=== PATIENT | male | born 1980 | race Caucasian/White ===

== ENCOUNTER → 2016-12-01 | Outpatient (CLI) | payer OTHER ==
--- NOTE | 2016-12-01 15:31 | US ---
EXAMINATION TYPE: US abdomen complete DATE OF EXAM: 12/01/2016 8:44 AM COMPARISON: NONE CLINICAL HISTORY: Generalized ABD pain EXAM MEASUREMENTS: Liver Length: 17.7 cm Gallbladder Wall: 0.3 cm CBD: 0.5 cm Spleen: 11.4 cm Right Kidney: 12.1 x 6.1 x 5.5 cm Left Kidney: 13.4 x 6.5 x 6.0 cm ANATOMY: TECHNOLOGIST IMPRESSION: Large pt body habitus, difficult to penetrate Pancreas: Head, body wnl/ tail obscured by overlying bowel gas Liver: Heterogeneous, difficult to penetrate, upper limits of normal for size Gallbladder: wnl Evidence for sonographic Gomez's sign: No CBD: wnl Spleen: wnl Right Kidney: wnl Left Kidney: wnl Upper IVC: wnl Abd Aorta: wnl The liver is heterogeneous. IMPRESSION: 1. Mild fatty infiltration liver. 2. There is some limitation due to patient body habitus.
== END | disposition home or self-care (01) ==
LOC: RADUSWWP 08:24
PROVIDERS: ATTEND Family Medicine
DX: K76.0 Fatty (change of) liver, not elsewhere classified (principal); R93.9 Diagnostic imaging inconclusive due to excess body fat of patient
CPT/HCPCS: 76700

== ENCOUNTER → 2016-12-04 | Outpatient (CLI) | payer OTHER ==
--- NOTE | 2016-12-04 16:58 | NM ---
EXAMINATION TYPE: NM hepatobiliary w EF DATE OF EXAM: 12/04/2016 4:46 PM COMPARISON: NONE HISTORY: Pain TECHNIQUE: After the intravenous administration of 5.5 mCi Tc 99m Mebrofenin hepatobiliary scintigrap hy is performed. Immediate images post injection. FINDINGS: There is satisfactory initial accumulation of tracer by the liver. The gallbladder is visualized wit hin 6 minutes. The small bowel activity is noted within 28 minutes. At one hour 8 ounces of oral en sure plus is given to mimic CCK and gallbladder ejection fraction is calculated at 69 %, in the diane l range. Therefore there is no scintigraphic evidence of cystic or common bile duct obstruction to s uggest acute cholecystitis or gallbladder dyskinesia. IMPRESSION: Exam is within normal limits.
== END | disposition home or self-care (01) ==
LOC: RADNMMAIN 14:43
PROVIDERS: ATTEND Family Medicine
DX: R10.11 Right upper quadrant pain (principal)
CPT/HCPCS: 78226; A9537

== ENCOUNTER → 2017-06-24 | Outpatient (CLI) | payer OTHER ==
--- NOTE | 2017-06-25 07:45 | CT ---
EXAMINATION TYPE: CT abdomen pelvis wo/w con DATE OF EXAM: 06/24/2017 COMPARISON: Complete abdominal ultrasound December 01, 2016. HISTORY: Right side/lower abdominal pain x1 year. CT DLP: 3849.4 mGycm, Automated Exposure Control for Dose Reduction was Utilized. CONTRAST: CT scan of the abdomen and pelvis is performed with oral and without and with IV Contrast, patient in jected with 100 mL of Omnipaque 300. FINDINGS: LUNG BASES: No significant abnormality is appreciated. LIVER/GB: Liver is diffusely low dense relative to spleen consistent with fatty infiltration on nonco ntrast CT. PANCREAS: No significant abnormality is seen. SPLEEN: No significant abnormality is seen. ADRENALS: No significant abnormality is seen. KIDNEYS: No renal calculi are evident on noncontrast CT images. There is symmetric cortical medullar y uptake and excretion from both kidneys without evidence of hydronephrosis bilaterally. There are fe w scattered pelvic phleboliths. BOWEL: The oral contrast does not reach colonic level. Appendix is felt within normal limits from the base of cecum. There is no suspicious small or large bowel dilatation identified. PROSTATE/SEMINAL VESICLES: No gross abnormality seen. LYMPH NODES: No greater than 1cm abdominal or pelvic lymph nodes are appreciated. OSSEOUS STRUCTURES: No significant abnormality is seen. OTHER: No significant additional abnormality is seen. IMPRESSION: No bowel obstruction is seen. No significant acute finding is seen to account for patien t's clinical symptoms.
== END | disposition home or self-care (01) ==
LOC: RADCTMAIN 17:01
PROVIDERS: ATTEND Internal Medicine Gastroenterology
DX: R10.9 Unspecified abdominal pain (principal)
CPT/HCPCS: 74178; Q9967

== ENCOUNTER → 2017-07-30 | Outpatient (CLI) | payer OTHER ==
--- NOTE | 2017-07-30 11:28 | FL ---
EXAMINATION TYPE: FL small bowel follow through DATE OF EXAM: 07/30/2017 11:02 AM COMPARISON: NONE HISTORY: Abdominal Pain The patient ingested thin liquid barium without difficulty. Small bowel follow-through was performed with transit time of 110 minutes. Small bowel loops appear to be of normal caliber and demonstrate normal mucosal fold pattern. No evidence for intrinsic or extrinsic mass. No evidence for mucosal a bnormality. I do not see evidence for Crohn's disease. Normal-appearing terminal ileum. IMPRESSION: Unremarkable study
== END | disposition home or self-care (01) ==
LOC: RADFLMAIN 08:04
DX: R10.9 Unspecified abdominal pain (principal)
CPT/HCPCS: 74250

== ENCOUNTER → 2017-12-21 | Outpatient (CLI) | payer OTHER ==
[2017-12-21 15:44] VITALS: BP 146/86; PULSE 82; RESP 15; TEMP 98.5; BMI 39.6
--- NOTE | 2017-12-21 15:59 | P.HPBAR ---
Bariatric H&P - History & Physicial H&P Date: 12/21/17 History & Physicial: Visit/CC: sleeve consult Patient initial contact: Initial weight: 134.309 kg Initial weight in pounds: 296.10 Height: 6 ft 0.5 in Initial BMI: 39.6 Last weight: Current weight: 134.309 kg Current weight in pounds: 296.10 Current BMI: 39.6 [place] body weight (based on NIH guidelines): 82.1 kg Excess body weight loss: 0.0% The patient is a 37 year-old M who presents for Bariatric Assessment. Patient presents today for sleeve gastrectomy consultation. He's had lifetime problems obesity. He attended a recent informational seminar. Past Medical History Past Medical History: GERD/Reflux Additional Past Medical History / Comment(s): MONO-(WITH LOOSE STOOLS, BLOOD IN STOOL, ABDOMINAL AND BACK PAIN.), RECENT GERD WITH MONO. History of Any Multi-Drug Resistant Organisms: None Reported Additional Past Surgical History / Comment(s): RIGHT FOOT SURGERY FOR GLASS INJURY (17YRS OLD), COLONOSCOPY (AUG 2016) Past Anesthesia/Blood Transfusion Reactions: No Reported Reaction, Motion Sickness Past Psychological History: No Psychological Hx Reported Smoking Status: Never smoker Past Alcohol Use History: None Reported Past Drug Use History: None Reported - Past Family History Mother Family Medical History: Diabetes Mellitus Surgical - Exam Vital Signs Temp Pulse Resp BP 98.5 F 82 15 146/86 12/21/17 15:22 12/21/17 15:22 12/21/17 15:22 12/21/17 15:22 - General well developed, no distress - Eyes PERRL - ENT normal pinna - Neck no masses - Respiratory normal expansion - Cardiovascular Rhythm: regular - Abdomen Abdomen: soft, non tender Bariatric Assessment & Plan Plan: Morbid obesity with severe comorbidities. Patient will be scheduled for EGD. He'll follow-up one month. We will lengthy discussion regarding gastric sleeve surgery. I went over the risks and benefits of procedure. Bariatric Checklist Checklist: Plan: Checklist: EGD: 1. Hiatal hernia: 2. H. Pylori: HgbA1c: Vitamin D: Smoking: Never smoker Primary care physician referral: Garry Nance Psychiatry clearance: Cardiology clearance: Sleep study: Diet journal: VTE risk score: VTE risk level: Rehab needs at discharge:
== END | disposition home or self-care (01) ==
LOC: BARWHC3 14:58
PROVIDERS: ATTEND Surgery
DX: Z48.815 Encounter for surgical aftercare following surgery on the digestive system (principal); E66.01 Morbid (severe) obesity due to excess calories; K21.9 Gastro-esophageal reflux disease without esophagitis; E44.0 Moderate protein-calorie malnutrition; E55.9 Vitamin D deficiency, unspecified
CPT/HCPCS: 99211

== ENCOUNTER 2018-01-21 08:27 | Day surgery (SDC) | payer OTHER ==
[2018-01-19 12:26] VITALS: BMI 35.6
[~2018-01-21 08:27] MED LIST: LACTATED RINGERS 1,000 ML IV SCH; LIDOCAINE 1% 20 ML VIAL (10MG/ML) FOR IV START INTRADERMA PRN
[2018-01-21 08:51] VITALS: TEMP 98
[2018-01-21] MEDS ORDERED: LIDOCAINE 1% INJ 10MG/ML (20 ML MDV) ONE (09:21)
[2018-01-21] MEDS ORDERED: PROPOFOL 10 MG/ML 20 ML VIAL IV ONE (09:21)
--- NOTE | 2018-01-21 09:22 | P.GSHP ---
History of Present Illness H&P Date: 01/21/18 Chief Complaint: GERD This is a 38-year-old male referred from Dr. Wong. Patient's had complaints of GERD. He has a known history of a hiatal hernia. Past Medical History Past Medical History: GERD/Reflux Additional Past Medical History / Comment(s): HX OF MONO (2016), FREQUENT DIARRHEA, BACK, STOMACH AND FOOT PAIN., PLANTAR FASCIITIS. History of Any Multi-Drug Resistant Organisms: None Reported Additional Past Surgical History / Comment(s): RIGHT FOOT SURGERY FOR GLASS INJURY (17YRS OLD), COLONOSCOPY , EGD. Past Anesthesia/Blood Transfusion Reactions: No Reported Reaction, Motion Sickness Past Psychological History: No Psychological Hx Reported Smoking Status: Never smoker Past Alcohol Use History: None Reported Past Drug Use History: None Reported - Past Family History Mother Family Medical History: Diabetes Mellitus Medications and Allergies Home Medications Medication Instructions Recorded Confirmed Type No Known Home Medications [No 01/19/18 01/19/18 History Known Home Medications] Allergies Allergy/AdvReac Type Severity Reaction Status Date / Time No Known Allergies Allergy Verified 01/19/18 12:09 Surgical - Exam Vital Signs Temp Pulse Resp BP Pulse Ox 98 F 68 16 129/85 96 01/21/18 08:50 01/21/18 08:50 01/21/18 08:50 01/21/18 08:50 01/21/18 08:50 - General well developed, no distress - Eyes PERRL - ENT normal pinna - Neck no masses - Respiratory normal expansion - Cardiovascular Rhythm: regular - Abdomen Abdomen: soft, non tender Assessment and Plan Assessment: GERD. We'll perform EGD.
--- NOTE | 2018-01-21 09:33 | P.OP ---
Date of Procedure: 01/21/18 Preoperative Diagnosis: GERD Postoperative Diagnosis: Antral gastritis Small sliding hiatal hernia Mild esophagitis Procedure(s) Performed: EGD Anesthesia: MAC Surgeon: Emerson Rodríguez Pathology: other (Antrum, esophagus) Condition: stable Disposition: PACU Description of Procedure: Patient's placed on the endoscopy table in the lateral position. He received IV sedation. The gastroscope placed oropharynx and passed into the esophagus and into the stomach. Scope was then placed through the pylorus. The first and second portion of the duodenum appeared normal. Scope was then brought back the antrum and this was mildly inflamed. A biopsies performed. The scope was then retroflexed and remainder of the stomach appeared normal. There was a small sliding hiatal hernia. The GE junction was at 38 cm. The distal esophagus was mildly inflamed a biopsies performed. The proximal esophagus appeared normal. Scope was withdrawn from patient.
[2018-01-21 09:45] VITALS: RESP 18
[2018-01-21 10:17] VITALS: BP 126/79; PULSE 53
== END 2018-01-21 10:27 | disposition home or self-care (01) ==
LOC: ORWHC2ENDO 08:27
PROVIDERS: ATTEND Surgery
DX: K29.50 Unspecified chronic gastritis without bleeding (principal); K44.9 Diaphragmatic hernia without obstruction or gangrene; K21.0 Gastro-esophageal reflux disease with esophagitis; Z83.3 Family history of diabetes mellitus
CPT/HCPCS: 88305; 43239; J2001; J2704

== ENCOUNTER → 2018-03-04 | Outpatient (CLI) | payer OTHER ==
[2018-03-04 15:23] LABS: HCT 47.2 % (39.0-53.0); HGB 15.9 gm/dL (13.0-17.5); MCH 28.3 pg (25.0-35.0); MCHC 33.6 g/dL (31.0-37.0); MCV 84.2 fL (80.0-100.0); Mean Platelet Volume 6.5; Platelet Count 297 k/uL (150-450); RDW 13.1 % (11.5-15.5); WBC 7.8 k/uL (3.8-10.6)
[2018-03-04 15:38] LABS: ALT 26 U/L (21-72); AST 22 U/L (17-59); Albumin 4.4 g/dL (3.5-5.0); Alkaline Phosphatase 84 U/L (38-126); Anion Gap 14 mmol/L; Blood Urea Nitrogen 18 mg/dL (9-20); Calcium 9.5 mg/dL (8.4-10.2); Carbon Dioxide 28 mmol/L (22-30); Chloride 103 mmol/L (98-107); Cholesterol 163 mg/dL (<200); Glucose 115 mg/dL (74-99); HDL Cholesterol 38 mg/dL (40-60); LDL Cholesterol,Calculated 87 mg/dL (0-99); Potassium 4.1 mmol/L (3.5-5.1); Sodium 145 mmol/L (137-145); Total Bilirubin 0.5 mg/dL (0.2-1.3); Total Protein 7.4 g/dL (6.3-8.2); Triglycerides 191 mg/dL (<150)
[2018-03-05 01:14] LABS: Hemoglobin A1C 5.2 % (4.0-6.0)
== END | disposition home or self-care (01) ==
LOC: LABWHC1 14:12
PROVIDERS: ATTEND Surgery
DX: E66.01 Morbid (severe) obesity due to excess calories (principal); E44.0 Moderate protein-calorie malnutrition; E55.9 Vitamin D deficiency, unspecified
CPT/HCPCS: 36415; 80053; 80061; 82306; 82607; 83036; 84425; 84443; 85027; 93005

== ENCOUNTER 2018-10-29 11:18 | Emergency (ER) | payer OTHER ==
[2018-10-29] MEDS ORDERED: HYDROmorphone 1 MG/ML 1 ML SYRINGE IVP STA (11:56)
--- NOTE | 2018-10-29 11:56 | ED ---
General Adult HPI - General Chief complaint: Extremity Injury, Lower Stated complaint: Back/Leg Pain Time Seen by Provider: 10/29/18 11:30 Source: patient, RN notes reviewed Mode of arrival: ambulatory Limitations: no limitations - History of Present Illness Initial comments: Patient is a pleasant 38-year-old male presenting to the emergency Department with low back pain. Patient does have chronic low back pain. Patient did have epidural injection done 1 week ago. Patient is having increase discomfort since that time. Discomfort does radiate to the right leg. No weakness. Patient did have a near fall secondary to pain. No incontinence or retention of bowel or bladder. No fevers however patient has been sweaty at couple of times. - Related Data Home Medications Medication Instructions Recorded Confirmed predniSONE 40 mg PO DAILY 10/29/18 10/29/18 Allergies Allergy/AdvReac Type Severity Reaction Status Date / Time ketorolac [From Toradol] AdvReac Abdominal Verified 10/29/18 12:05 Pain Review of Systems ROS Statement: Those systems with pertinent positive or pertinent negative responses have been documented in the HPI. ROS Other: All systems not noted in ROS Statement are negative. Constitutional: Reports: as per HPI Eyes: Denies: eye pain ENT: Denies: ear pain Respiratory: Denies: cough Cardiovascular: Denies: chest pain Endocrine: Denies: fatigue Gastrointestinal: Reports: abdominal pain (Patient has had chronic abdominal pain, unchanged in the past week) Genitourinary: Denies: dysuria Musculoskeletal: Reports: as per HPI Skin: Denies: rash Neurological: Denies: weakness Past Medical History Past Medical History: GERD/Reflux Additional Past Medical History / Comment(s): HX OF MONO (2016), FREQUENT DIARRHEA, BACK, STOMACH AND FOOT PAIN., PLANTAR FASCIITIS. History of Any Multi-Drug Resistant Organisms: None Reported Additional Past Surgical History / Comment(s): RIGHT FOOT SURGERY FOR GLASS INJURY (17YRS OLD), COLONOSCOPY , EGD. Past Anesthesia/Blood Transfusion Reactions: No Reported Reaction, Motion Sickness Past Psychological History: No Psychological Hx Reported Smoking Status: Never smoker Past Alcohol Use History: None Reported Past Drug Use History: None Reported - Past Family History Mother Family Medical History: Diabetes Mellitus General Exam Limitations: no limitations General appearance: alert, in no apparent distress Head exam: Present: atraumatic Eye exam: Present: normal appearance Neck exam: Present: normal inspection Respiratory exam: Present: normal lung sounds bilaterally Cardiovascular Exam: Present: regular rate, normal rhythm Expanded Peripheral pulses: 2+: Dorsalis Pedis (R), Dorsalis Pedis (L) GI/Abdominal exam: Present: soft. Absent: distended, tenderness, pulsatile mass Rectal exam: Present: normal rectal tone exam: Present: normal inspection, other (No saddle anesthesia) Extremities exam: Present: normal inspection. Absent: pedal edema, calf tenderness Back exam: Absent: tenderness, vertebral tenderness, rash noted Neurological exam: Present: alert. Absent: motor sensory deficit Expanded Sensory exam: Lower Extremity Light Touch: Normal Motor strength exam: RLE: 5, LLE: 5 Psychiatric exam: Present: normal affect, normal mood Skin exam: Present: normal color Course Vital Signs 10/29/18 11:18 Temperature 97.6 F Pulse Rate 91 Respiratory 18 Rate Blood Pressure 137/87 O2 Sat by Pulse 97 Oximetry - Reevaluation(s) Reevaluation #1: 10/29/18 11:50 Case was discussed with Dr. Blood who specifically recommends obtaining computed tomography scan of the lumbar spine with and without contrast. He feels this is more appropriate than MRI. Medical Decision Making - Medical Decision Making Patient reevaluated and updated. - Lab Data Result diagrams: 10/29/18 12:17 10/29/18 12:17 Lab Results 10/29/18 10/29/18 10/29/18 Range/Units 12:17 12:17 12:17 WBC 13.8 H (3.8-10.6) k/uL RBC 5.45 (4.30-5.90) m/uL Hgb 15.7 (13.0-17.5) gm/dL Hct 46.4 (39.0-53.0) % MCV 85.1 (80.0-100.0) fL MCH 28.9 (25.0-35.0) pg MCHC 33.9 (31.0-37.0) g/dL RDW 13.6 (11.5-15.5) % Plt Count 275 (150-450) k/uL Neutrophils % 67 % Lymphocytes % 22 % Monocytes % 8 % Eosinophils % 2 % Basophils % 0 % Neutrophils # 9.2 H (1.3-7.7) k/uL Lymphocytes # 3.0 (1.0-4.8) k/uL Monocytes # 1.1 H (0-1.0) k/uL Eosinophils # 0.2 (0-0.7) k/uL Basophils # 0.1 (0-0.2) k/uL PT 9.6 (9.0-12.0) sec INR 0.9 (<1.2) APTT 21.8 L (22.0-30.0) sec Sodium 140 (137-145) mmol/L Potassium 4.0 (3.5-5.1) mmol/L Chloride 108 H (98-107) mmol/L Carbon Dioxide 24 (22-30) mmol/L Anion Gap 8 mmol/L BUN 19 (9-20) mg/dL Creatinine 0.70 (0.66-1.25) mg/dL Est GFR (CKD-EPI)AfAm >90 (>60 ml/min/1.73 sqM) Est GFR (CKD-EPI)NonAf >90 (>60 ml/min/1.73 sqM) Glucose 89 (74-99) mg/dL Calcium 9.2 (8.4-10.2) mg/dL Total Bilirubin 0.4 (0.2-1.3) mg/dL AST 17 (17-59) U/L ALT 24 (21-72) U/L Alkaline Phosphatase 64 (38-126) U/L Total Protein 6.9 (6.3-8.2) g/dL Albumin 3.7 (3.5-5.0) g/dL - Radiology Data Radiology results: report reviewed (Lumbar spine CT shows no paraspinal mass. Mild degenerative changes.) Disposition Clinical Impression: Low back pain Disposition: HOME SELF-CARE Condition: Stable Instructions: Back Pain (ED) Additional Instructions: Please follow-up with both her primary care physician and Dr. Blood in the next day or 2 for recheck. Return for fever, increased pain, weakness, loss of control of bowel or bladder, loss of sensation, worsening symptoms or other concerns. Is patient prescribed a controlled substance at d/c from ED?: No Referrals: Az Esparza MD [Primary Care Provider] - 1-2 days Time of Disposition: 13:57
[2018-10-29 12:57] LABS: Basophils # (A) 0.1 k/uL (0-0.2); Basophils % (A) 0 %; Eosinophils # (A) 0.2 k/uL (0-0.7); Eosinophils % (A) 2 %; HCT 46.4 % (39.0-53.0); HGB 15.7 gm/dL (13.0-17.5); Lymphocytes % (A) 22 %; MCH 28.9 pg (25.0-35.0); MCHC 33.9 g/dL (31.0-37.0); MCV 85.1 fL (80.0-100.0); Mean Platelet Volume 6.1; Monocytes # (A) 1.1 k/uL (0-1.0); Monocytes % (A) 8 %; Neutrophils # (A) 9.2 k/uL (1.3-7.7); Neutrophils % (A) 67 %; Platelet Count 275 k/uL (150-450); RBC 5.45 m/uL (4.30-5.90); RDW 13.6 % (11.5-15.5); WBC 13.8 k/uL (3.8-10.6)
[2018-10-29 13:07] LABS: INR 0.9 (<1.2); Prothrombin Time 9.6 sec (9.0-12.0)
[2018-10-29 13:12] LABS: ALT 24 U/L (21-72); AST 17 U/L (17-59); Albumin 3.7 g/dL (3.5-5.0); Alkaline Phosphatase 64 U/L (38-126); Anion Gap 8 mmol/L; Blood Urea Nitrogen 19 mg/dL (9-20); Calcium 9.2 mg/dL (8.4-10.2); Carbon Dioxide 24 mmol/L (22-30); Chloride 108 mmol/L (98-107); Glucose 89 mg/dL (74-99); Sodium 140 mmol/L (137-145); Total Bilirubin 0.4 mg/dL (0.2-1.3); Total Protein 6.9 g/dL (6.3-8.2)
--- NOTE | 2018-10-29 13:21 | CT ---
EXAMINATION TYPE: CT lumbar spine wo/w con DATE OF EXAM: 10/29/2018 COMPARISON: CT abdomen pelvis 06/24/2017 HISTORY: Pain, post epidiural injection CT DLP: 3287.4 mGycm Automated exposure control for dose reduction was used. CONTRAST: CT scan of the lumbar is performed without and with IV Contrast, patient injected with mL of Isovue [address] of the lumbar spine was performed. Bone and soft tissue window settings are submitted as well as coronal and sagittal reconstructions. FINDINGS: Lumbar vertebral bodies show preserved height and alignment. Some loss of disc height present L3-4. N o abnormal enhancement following contrast administration. No evident spondylolysis. Spinal curvature. L1-L2: Normal disc space height. No disc herniation protrusion or central stenosis. No facet joint arthropathy. No evidence for foraminal encroachment. L2-L3: Normal disc space height. No disc herniation protrusion or central stenosis. No facet joint arthropathy. No evidence for foraminal encroachment. L3-L4: Posterior broad-based disc bulge contacts anterior thecal sac. There is no significant central stenosis. Circumferential extension of endplate disc complex encroaches somewhat on the neural ponce delfino greater on the left than on the right L4-L5: Small posterior disc bulge present. No significant central stenosis or foraminal encroachment. L5-S1: Small posterior disc bulge noted. No significant central stenosis or foraminal encroachment.. IMPRESSION: No paraspinal masses are identified. Lumbar segments are intact. Mild degenerative disc disease.
[2018-10-29 13:31] LABS: Partial Thromboplastin Time 21.8 sec (22.0-30.0)
[2018-10-29 14:19] VITALS: BP 138/70; PULSE 84; RESP 16; TEMP 97.8
== END 2018-10-29 14:18 | disposition home or self-care (01) ==
LOC: EC 11:18
DX: M54.5 Low back pain (principal); Z79.52 Long term (current) use of systemic steroids; Z88.6 Allergy status to analgesic agent
CPT/HCPCS: 36415; 72133; 80053; 85025; 85610; 85730; 87040; 96374; 99284

== ENCOUNTER 2019-09-29 20:51 | Emergency (ER) | payer OTHER ==
[2019-09-29 20:57] VITALS: RESP 18
--- NOTE | 2019-09-29 21:08 | ED ---
Lower Extremity Injury HPI - General Chief Complaint: Extremity Injury, Lower Stated Complaint: Leg pain, swollen, IHS Time Seen by Provider: 09/29/19 21:02 Source: patient, RN notes reviewed, old records reviewed Mode of arrival: ambulatory Limitations: no limitations - History of Present Illness Initial Comments: This is a 31-year-old male who presents today for evaluation of fever chills severe left knee pain. Patient relates to having down and kneeling on his left knee while at work today. Symptoms have significantly progressed since he got home from work being about 7 hours ago. He has developed fever with nausea and chills and sweating. Patient did take Motrin for pain at home with no help. Also complaining of redness and warmth of the left knee swelling and inability to range of motion and flexion. No recent injuries no recent illnesses no recent upper extremity infection or GI illness no recent tattoos and denying drugs or alcohol abuse couldn't IV drugs Complaint: knee injury (Severe left knee pain) -: hour(s) Injury: Knee: Left Type of Injury: other (No real traumatic injury noted) Place: work Severity: severe Severity scale (1-10): 8 Improves With: nothing Worsens With: weight bearing, movement Other Symptoms: loss of consciousness Associated Symptoms: swelling Treatments Prior to Arrival: NSAIDS - Related Data Home Medications Medication Instructions Recorded Confirmed predniSONE 40 mg PO DAILY 10/29/18 10/29/18 Previous Rx's Medication Instructions Recorded Cephalexin [Keflex] 500 mg PO Q6HR #40 cap 09/29/19 Naproxen [Naprosyn] 500 mg PO Q12HR PRN #30 tab 09/29/19 Allergies Allergy/AdvReac Type Severity Reaction Status Date / Time ketorolac [From Toradol] AdvReac Abdominal Verified 09/29/19 20:56 Pain Review of Systems ROS Statement: Those systems with pertinent positive or pertinent negative responses have been documented in the HPI. ROS Other: All systems not noted in ROS Statement are negative. Past Medical History Past Medical History: GERD/Reflux Additional Past Medical History / Comment(s): HX OF MONO (2016), FREQUENT DIARRHEA, BACK, STOMACH AND FOOT PAIN., PLANTAR FASCIITIS. History of Any Multi-Drug Resistant Organisms: None Reported Additional Past Surgical History / Comment(s): RIGHT FOOT SURGERY FOR GLASS INJURY (17YRS OLD), COLONOSCOPY , EGD. Past Anesthesia/Blood Transfusion Reactions: No Reported Reaction, Motion Sickness Past Psychological History: No Psychological Hx Reported Smoking Status: Never smoker Past Alcohol Use History: None Reported Past Drug Use History: None Reported - Past Family History Mother Family Medical History: Diabetes Mellitus General Exam Limitations: no limitations General appearance: alert, in no apparent distress Head exam: Present: atraumatic, normocephalic, normal inspection Eye exam: Present: normal appearance, PERRL, EOMI. Absent: scleral icterus, conjunctival injection, periorbital swelling ENT exam: Present: normal exam, mucous membranes moist Neck exam: Present: normal inspection. Absent: tenderness, meningismus, lymphadenopathy Respiratory exam: Present: normal lung sounds bilaterally. Absent: respiratory distress, wheezes, rales, rhonchi, stridor Cardiovascular Exam: Present: regular rate, normal rhythm, normal heart sounds. Absent: systolic murmur, diastolic murmur, rubs, gallop, clicks GI/Abdominal exam: Present: soft, normal bowel sounds. Absent: distended, tenderness, guarding, rebound, rigid Extremities exam: Present: normal capillary refill, other (Warmth and erythema to left knee). Absent: full ROM (Decreased range of motion and flexion), tenderness, pedal edema, joint swelling, calf tenderness Back exam: Present: normal inspection Neurological exam: Present: alert, oriented X3, CN II-XII intact Psychiatric exam: Present: normal affect, normal mood Skin exam: Present: warm, dry, intact, normal color, other (She does have warmth edema and erythema the left knee). Absent: rash Course Vital Signs 09/29/19 09/29/19 20:53 22:31 Temperature 99.0 F 98.4 F Pulse Rate 117 H 66 Respiratory 18 18 Rate Blood Pressure 121/81 150/78 O2 Sat by Pulse 97 96 Oximetry - Reevaluation(s) Reevaluation #1: 09/29/19 22:14 Medical records reviewed Reevaluation #2: 09/29/19 22:15 Patient symptoms are improved Reevaluation #3: 09/29/19 23:[address] Monroy, aware of findings, will see in office tomorrow Medical Decision Making - Medical Decision Making 39 male the ER for evaluation of left knee pain severe with fever. At this point patient is fevers improved as her white count of 19 but CRP is negative, patient has some range of motion of knee with severe anterior patellar tenderness to do see patellar swelling on x-ray likely for patellar bursitis, patient will follow-up with orthopedics for further evaluation tomorrow. - Lab Data Result diagrams: 09/29/19 21:50 09/29/19 21:50 Lab Results 09/29/19 09/29/19 09/29/19 Range/Units 21:50 21:50 21:50 WBC 19.5 H (3.8-10.6) k/uL RBC 5.70 (4.30-5.90) m/uL Hgb 16.4 (13.0-17.5) gm/dL Hct 48.8 (39.0-53.0) % MCV 85.5 (80.0-100.0) fL MCH 28.8 (25.0-35.0) pg MCHC 33.7 (31.0-37.0) g/dL RDW 12.6 (11.5-15.5) % Plt Count 338 (150-450) k/uL Neutrophils % 88 % Lymphocytes % 6 % Monocytes % 5 % Eosinophils % 0 % Basophils % 1 % Neutrophils # 17.1 H (1.3-7.7) k/uL Lymphocytes # 1.1 (1.0-4.8) k/uL Monocytes # 0.9 (0-1.0) k/uL Eosinophils # 0.1 (0-0.7) k/uL Basophils # 0.2 (0-0.2) k/uL ESR 3 (0-15) mm/hr PT 10.0 (9.0-12.0) sec INR 0.9 (<1.2) APTT 23.2 (22.0-30.0) sec Sodium 138 (137-145) mmol/L Potassium 4.0 (3.5-5.1) mmol/L Chloride 105 (98-107) mmol/L Carbon Dioxide 24 (22-30) mmol/L Anion Gap 9 mmol/L BUN 15 (9-20) mg/dL Creatinine 0.76 (0.66-1.25) mg/dL Est GFR (CKD-EPI)AfAm >90 (>60 ml/min/1.73 sqM) Est GFR (CKD-EPI)NonAf >90 (>60 ml/min/1.73 sqM) Glucose 119 H (74-99) mg/dL Calcium 9.5 (8.4-10.2) mg/dL Phosphorus 3.5 (2.5-4.5) mg/dL Magnesium 2.0 (1.6-2.3) mg/dL Total Bilirubin 0.7 (0.2-1.3) mg/dL AST 34 (17-59) U/L ALT 43 (21-72) U/L Alkaline Phosphatase 109 (38-126) U/L C-Reactive Protein 5.8 (<10.0) mg/L Total Protein 8.1 (6.3-8.2) g/dL Albumin 4.6 (3.5-5.0) g/dL Urine Color Urine Appearance (Clear) Urine pH (5.0-8.0) Ur Specific [place] (1.001-1.035) Urine Protein (Negative) Urine Glucose (UA) (Negative) Urine Ketones (Negative) Urine Blood (Negative) Urine Nitrite (Negative) Urine Bilirubin (Negative) Urine Urobilinogen (<2.0) mg/dL Ur Leukocyte Esterase (Negative) 09/29/19 Range/Units 22:17 WBC (3.8-10.6) k/uL RBC (4.30-5.90) m/uL Hgb (13.0-17.5) gm/dL Hct (39.0-53.0) % MCV (80.0-100.0) fL MCH (25.0-35.0) pg MCHC (31.0-37.0) g/dL RDW (11.5-15.5) % Plt Count (150-450) k/uL Neutrophils % % Lymphocytes % % Monocytes % % Eosinophils % % Basophils % % Neutrophils # (1.3-7.7) k/uL Lymphocytes # (1.0-4.8) k/uL Monocytes # (0-1.0) k/uL Eosinophils # (0-0.7) k/uL Basophils # (0-0.2) k/uL ESR (0-15) mm/hr PT (9.0-12.0) sec INR (<1.2) APTT (22.0-30.0) sec Sodium (137-145) mmol/L Potassium (3.5-5.1) mmol/L Chloride (98-107) mmol/L Carbon Dioxide (22-30) mmol/L Anion Gap mmol/L BUN (9-20) mg/dL Creatinine (0.66-1.25) mg/dL Est GFR (CKD-EPI)AfAm (>60 ml/min/1.73 sqM) Est GFR (CKD-EPI)NonAf (>60 ml/min/1.73 sqM) Glucose (74-99) mg/dL Calcium (8.4-10.2) mg/dL Phosphorus (2.5-4.5) mg/dL Magnesium (1.6-2.3) mg/dL Total Bilirubin (0.2-1.3) mg/dL AST (17-59) U/L ALT (21-72) U/L Alkaline Phosphatase (38-126) U/L C-Reactive Protein (<10.0) mg/L Total Protein (6.3-8.2) g/dL Albumin (3.5-5.0) g/dL Urine Color Yellow Urine Appearance Clear (Clear) Urine pH 6.5 (5.0-8.0) Ur Specific [place] 1.025 (1.001-1.035) Urine Protein Trace H (Negative) Urine Glucose (UA) Negative (Negative) Urine Ketones 1+ H (Negative) Urine Blood Negative (Negative) Urine Nitrite Negative (Negative) Urine Bilirubin Negative (Negative) Urine Urobilinogen <2.0 (<2.0) mg/dL Ur Leukocyte Esterase Negative (Negative) - EKG Data -: EKG Interpreted by Me (EKG shows sinus rhythm rate of 90, OH 166, QRS 78, QTc 4:30) - Radiology Data Radiology results: report reviewed (X-ray left knee does show prepatellar edema possibly prepatellar bursitis), image reviewed Disposition Clinical Impression: Prepatellar bursitis, left knee Disposition: HOME SELF-CARE Condition: Good Instructions (If sedation given, give patient instructions): Knee Bursitis (ED), Knee Pain (ED) Prescriptions: Cephalexin [Keflex] 500 mg PO Q6HR #40 cap Naproxen [Naprosyn] 500 mg PO Q12HR PRN #30 tab PRN Reason: Pain Is patient prescribed a controlled substance at d/c from ED?: No Referrals: Az Esparza MD [Primary Care Provider] - 1-2 days Dane Monroy DO [Medical Doctor] - 1-2 days
[2019-09-29] MEDS ORDERED: ONDANSETRON 4 MG/2 ML VIAL IVP STA (21:30)
[2019-09-29] MEDS ORDERED: SODIUM CHLORIDE 0.9% 1,000 ML IV STA ×2 (21:30)
[2019-09-29] MEDS ORDERED: ACETAMINOPHEN TAB 500 MG TAB PO STA (21:30)
[2019-09-29 22:15] LABS: Basophils # (A) 0.2 k/uL (0-0.2); Basophils % (A) 1 %; Eosinophils # (A) 0.1 k/uL (0-0.7); Eosinophils % (A) 0 %; HCT 48.8 % (39.0-53.0); HGB 16.4 gm/dL (13.0-17.5); Lymphocytes # (A) 1.1 k/uL (1.0-4.8); Lymphocytes % (A) 6 %; MCH 28.8 pg (25.0-35.0); MCHC 33.7 g/dL (31.0-37.0); MCV 85.5 fL (80.0-100.0); Mean Platelet Volume 6.1; Monocytes # (A) 0.9 k/uL (0-1.0); Monocytes % (A) 5 %; Neutrophils # (A) 17.1 k/uL (1.3-7.7); Neutrophils % (A) 88 %; Platelet Count 338 k/uL (150-450); RDW 12.6 % (11.5-15.5); WBC 19.5 k/uL (3.8-10.6)
[2019-09-29 22:23] LABS: Appearance,Urine Clear (Clear); Bilirubin,Urine Negative (Negative); Blood,Urine Negative (Negative); Color,Urine Yellow; Glucose,Urine (UA) Negative (Negative); Ketones,Urine 1+ (Negative); Leukocyte Esterase,Urine Negative (Negative); Nitrite,Urine Negative (Negative); PH, Urine 6.5 (5.0-8.0); Protein,Urine Trace (Negative); Specific Gravity,Urine 1.025 (1.001-1.035); Urobilinogen,Urine <2.0 mg/dL (<2.0)
[2019-09-29 22:28] LABS: INR 0.9 (<1.2); Partial Thromboplastin Time 23.2 sec (22.0-30.0)
[2019-09-29 22:30] LABS: ALT 43 U/L (21-72); AST 34 U/L (17-59); African American GFR (CKD) >90 (>60 ml/min/1.73 sqM); Albumin 4.6 g/dL (3.5-5.0); Alkaline Phosphatase 109 U/L (38-126); Anion Gap 9 mmol/L; Blood Urea Nitrogen 15 mg/dL (9-20); C Reactive Protein 5.8 mg/L (<10.0); Calcium 9.5 mg/dL (8.4-10.2); Carbon Dioxide 24 mmol/L (22-30); Chloride 105 mmol/L (98-107); Glucose 119 mg/dL (74-99); Phosphorus 3.5 mg/dL (2.5-4.5); Sodium 138 mmol/L (137-145); Total Bilirubin 0.7 mg/dL (0.2-1.3); Total Protein 8.1 g/dL (6.3-8.2)
--- NOTE | 2019-09-29 22:39 | XR ---
EXAMINATION TYPE: XR knee complete LT DATE OF EXAM: 09/29/2019 COMPARISON: NONE HISTORY: Knee pain and swelling TECHNIQUE: 3 views FINDINGS: I see no fracture nor dislocation. Joint spaces are fairly normal. There is no sign of join t effusion. Patella is intact. There is significant soft tissue swelling anterior to the patella. IMPRESSION: Soft tissue anterior swelling consistent with patellar bursitis. No fracture seen. Normal joint spaces.
[2019-09-29 23:07] LABS: Erythrocyte Sedimentation Rate 3 mm/hr (0-15)
[2019-09-29] MEDS ORDERED: cefTRIAXone IN SWFI 1,000 MG/10 ML SYRINGE IVP STA (23:07)
[2019-09-29] MEDS ORDERED: KETOROLAC 30 MG/ML 1 ML VIAL IVP STA (23:07)
[2019-09-29] MEDS ORDERED: MORPHINE SULFATE 4 MG/ML SYRINGE IVP STA (23:07)
[2019-09-29] MEDS ORDERED: CEPHALEXIN 500MG STARTER PACK 4 CAP BTL PO STA (23:07)
[2019-09-29] MEDS ORDERED: Acetaminophen-Codeine 300-30mg TAB PO STA (23:07)
[2019-09-29] MEDS ORDERED: DEXAMETHASONE SOD PHOSPHATE 10 MG/ML 1 ML VIAL IV STA (23:10)
[2019-09-29 23:29] VITALS: BP 123/82; PULSE 94; TEMP 98.6
== END 2019-09-29 23:40 | disposition home or self-care (01) ==
LOC: EC 20:51
DX: M70.42 Prepatellar bursitis, left knee (principal); R50.9 Fever, unspecified; R11.0 Nausea; R61 Generalized hyperhidrosis; R55 Syncope and collapse; Z88.6 Allergy status to analgesic agent; Z79.52 Long term (current) use of systemic steroids; Z87.39 Personal history of other diseases of the musculoskeletal system and connective tissue; Z53.8 Procedure and treatment not carried out for other reasons; Y93.89 Activity, other specified; Y92.69 Other specified industrial and construction area as the place of occurrence of the external cause; Y99.0 Civilian activity done for income or pay
CPT/HCPCS: 36415; 80053; 81003; 83735; 84100; 85025; 85610; 85652; 85730; 86140; 87040; 93005; 96361; 96374; 96375; 99284

== ENCOUNTER → 2019-10-12 | Outpatient (CLI) | payer OTHER ==
[2019-10-12 10:48] LABS: Basophils # (A) 0.1 k/uL (0-0.2); Basophils % (A) 1 %; Eosinophils # (A) 0.2 k/uL (0-0.7); Eosinophils % (A) 2 %; HCT 48.1 % (39.0-53.0); HGB 16.5 gm/dL (13.0-17.5); Lymphocytes # (A) 1.6 k/uL (1.0-4.8); Lymphocytes % (A) 17 %; MCH 29.5 pg (25.0-35.0); MCHC 34.2 g/dL (31.0-37.0); MCV 86.2 fL (80.0-100.0); Mean Platelet Volume 5.9; Monocytes # (A) 0.6 k/uL (0-1.0); Monocytes % (A) 6 %; Neutrophils # (A) 6.7 k/uL (1.3-7.7); Neutrophils % (A) 72 %; Platelet Count 341 k/uL (150-450); RBC 5.58 m/uL (4.30-5.90); RDW 12.5 % (11.5-15.5); WBC 9.3 k/uL (3.8-10.6)
[2019-10-12 12:43] LABS: Erythrocyte Sedimentation Rate 8 mm/hr (0-15)
== END | disposition home or self-care (01) ==
LOC: LABWHC1 10:00
PROVIDERS: ATTEND Orthopaedic Surgery
DX: M25.50 Pain in unspecified joint (principal)
CPT/HCPCS: 36415; 85025; 85652; 86140

== ENCOUNTER → 2019-12-26 | Outpatient (CLI) | payer OTHER ==
--- NOTE | 2019-12-27 10:16 | MR ---
EXAMINATION TYPE: MR knee LT wo con DATE OF EXAM: 12/26/2019 9:12 PM COMPARISON: NONE HISTORY: Lt knee pain/injury 2 mos ago TECHNIQUE: Multiplanar, multisequence imaging of the left knee is performed. FINDINGS: MEDIAL MENISCUS: Anterior and posterior horns are intact without tear. LATERAL MENISCUS: Anterior and posterior horns are intact without tear. CRUCIATE LIGAMENTS: The anterior and posterior cruciate ligaments are intact and unremarkable. Small fluid adjacent to the ACL measuring 8 mm may reflect ganglion cyst. COLLATERAL LIGAMENTS: The medial collateral ligament and lateral collateral ligament complex are intact and unremarkable. EXTENSOR MECHANISM: Visualized quadriceps and patellar tendons are intact. EFFUSION: No evidence for joint effusion. POPLITEAL CYST: No popliteal/hoang cyst. TRICOMPARTMENT SPACES: The tricompartment joint spaces appear within normal limits. CARTILAGE: The articular cartilage is maintained without abnormal signal or full-thickness defect. BONE MARROW SIGNAL: No focal abnormal marrow signal is appreciated: OTHER: No additional significant abnormality is appreciated. IMPRESSION: 1. Small ganglion cyst adjacent to the insertion of the ACL is difficult to exclude. Otherwise unrema rkable study.
== END | disposition home or self-care (01) ==
LOC: RADMRIMAIN 20:41
PROVIDERS: ATTEND Orthopaedic Surgery
DX: M67.462 Ganglion, left knee (principal)

== ENCOUNTER 2021-07-10 16:47 | Emergency (ER) | payer OTHER ==
[2021-07-10 17:07] VITALS: TEMP 98.2
--- NOTE | 2021-07-10 18:09 | XR ---
EXAMINATION TYPE: XR chest 2V DATE OF EXAM: 07/10/2021 CLINICAL HISTORY: fall. TECHNIQUE: Frontal and lateral view of the chest. COMPARISON: None FINDINGS: The cardiomediastinal silhouette is within normal limits for size. Pulmonary vasculature i s normal. There is no focal air space opacity. No pleural effusion. No pneumothorax seen. No acute d isplaced osseous fracture. IMPRESSION: No acute cardiopulmonary process.
--- NOTE | 2021-07-10 18:25 | XR ---
EXAMINATION TYPE: XR shoulder complete RT DATE OF EXAM: 07/10/2021 COMPARISON: NONE HISTORY: . Fall. TECHNIQUE: Internal rotation, external rotation, scapular Y views of the right shoulder are obtained. FINDINGS: No acute fracture. No dislocation. Joint spaces and alignment are normal. Normal mineraliza tion. No significant soft tissue swelling. IMPRESSION: No acute fracture or dislocation.
--- NOTE | 2021-07-10 18:26 | XR ---
EXAMINATION TYPE: XR knee complete LT DATE OF EXAM: 07/10/2021 COMPARISON: 09/29/2019 HISTORY: . Fall. TECHNIQUE: AP, oblique, and lateral views of the left knee obtained. FINDINGS: No acute fracture. No dislocation. Joint spaces and alignment are normal. Normal mineraliza tion. No significant soft tissue swelling. IMPRESSION: No acute fracture or dislocation.
[2021-07-10] MEDS ORDERED: ORPHENADRINE 30 MG/ML 2 ML VIAL IM STA (19:06)
[2021-07-10] MEDS ORDERED: HYDROmorphone 1 MG/ML 1 ML SYRINGE IM STA (19:06)
--- NOTE | 2021-07-10 19:23 | ED ---
General Adult HPI - General Chief complaint: Chest Pain Stated complaint: IHS-chest injury Time Seen by Provider: 07/10/21 18:54 Source: patient Mode of arrival: ambulatory Limitations: no limitations - History of Present Illness Initial comments: 41 year-old male patient presents to the emergency department for evaluation of right sided rib pain, right shoulder pain, and upper back pain after a fall on 07/01/21. Patient states he was at work, tripped on a pallet, and fell forward with a large glass candle jar in his hand. States that the candle was between his chest and the floor when he fell. States his pain does not seem to be getting any better. States he cannot sleep due to the pain. He has been taking naproxen and tramadol for pain without relief. States the pain worsens with deep breathing especially when he increases physical activity. Denies any hemoptysis. Denies hematuria. Patient denies any headache, neck pain, dizziness, weakness, abdominal pain, nausea, vomiting, or difficulties with bowel movements or urination. - Related Data Home Medications Medication Instructions Recorded Confirmed predniSONE [Deltasone] 40 mg PO DAILY 10/29/18 10/29/18 Previous Rx's Medication Instructions Recorded Cephalexin [Keflex] 500 mg PO Q6HR #40 cap 09/29/19 Naproxen [Naprosyn] 500 mg PO Q12HR PRN #30 tab 09/29/19 Cyclobenzaprine [Flexeril] 10 mg PO TID #15 tab 07/10/21 Lidocaine 5% Patch [Lidoderm] 1 patch TOPICAL DAILY #30 patch 07/10/21 Allergies Allergy/AdvReac Type Severity Reaction Status Date / Time ketorolac [From Toradol] AdvReac Abdominal Verified 07/10/21 17:08 Pain Review of Systems ROS Statement: Those systems with pertinent positive or pertinent negative responses have been documented in the HPI. ROS Other: All systems not noted in ROS Statement are negative. Past Medical History Past Medical History: GERD/Reflux Additional Past Medical History / Comment(s): HX OF MONO (2016), FREQUENT DIARRHEA, BACK, STOMACH AND FOOT PAIN., PLANTAR FASCIITIS. History of Any Multi-Drug Resistant Organisms: None Reported Additional Past Surgical History / Comment(s): RIGHT FOOT SURGERY FOR GLASS INJURY (17YRS OLD), COLONOSCOPY , EGD. Past Anesthesia/Blood Transfusion Reactions: No Reported Reaction, Motion Sickness Past Psychological History: No Psychological Hx Reported Smoking Status: Never smoker Past Alcohol Use History: None Reported Past Drug Use History: None Reported - Past Family History Mother Family Medical History: Diabetes Mellitus General Exam Limitations: no limitations General appearance: alert, in no apparent distress, other (Physical well- developed, well-nourished adult male patient in no acute distress. Vital signs upon presentation are temperature 98.2F, pulse 73, respirations 18, blood pressure 170/99, pulse ox 97% on room air.) Respiratory exam: Present: normal lung sounds bilaterally, chest wall tenderness (Right lateral anterior ribs). Absent: respiratory distress, wheezes, rales, rhonchi, stridor Cardiovascular Exam: Present: regular rate, normal rhythm, normal heart sounds. Absent: systolic murmur, diastolic murmur, rubs, gallop, clicks GI/Abdominal exam: Present: soft, normal bowel sounds. Absent: distended, tenderness, guarding, rebound, rigid Extremities exam: Present: normal inspection, full ROM, normal capillary refill, other (Skin to the left knee is pink, warm, dry. Cap refill less than 3 seconds. No soft tissue swelling. Pedal and posttibial pulses 2+.). Absent: tenderness, pedal edema, joint swelling, calf tenderness Neurological exam: Present: alert, oriented X3, CN II-XII intact Psychiatric exam: Present: normal affect, normal mood Skin exam: Present: warm, dry, intact, normal color. Absent: rash Course Vital Signs 07/10/21 07/10/21 17:02 19:42 Temperature 98.2 F Pulse Rate 73 83 Respiratory 18 20 Rate Blood Pressure 170/99 148/83 O2 Sat by Pulse 97 98 Oximetry Medical Decision Making - Medical Decision Making 41-year-old male patient presented to the emergency department today for evaluation of right rib, right shoulder, upper back pain after a fall about a week ago. Physical examination did reveal tenderness over the right anterolateral ribs. Good neurovascular status of the right arm. No spinal tenderness. X-rays of the right shoulder, chest, right ribs, left knee were obtained and were negative for any acute abnormalities. We did discuss possibility of rib contusion versus occult hairline fracture as a cause for his symptoms. Also discussed right shoulder strain. He'll be discharged follow-up with orthopedics as needed. Given muscle relaxer and Lidoderm patch. Return parameters were discussed in detail. He verbalizes understanding and agrees with this plan. My attending is Dr. Gregory. - Radiology Data Radiology results: report reviewed, image reviewed 2 views of the chest are obtained. Report is reviewed in its entirety. Im pression by Dr. Tomlinson shows no acute cardiopulmonary process. 3 views of the right shoulder obtained. Report reviewed in its entirety. Impression by Dr. Tomlinson shows no acute fracture dislocation. 3 views of the left knee are obtained. Report reviewed in its entirety. Impression by Shows no acute fracture dislocation. 4 views of the right ribs are obtained. Report is reviewed in its entirety. Impression by Dr. Tomlinson shows no displaced right rib fracture. Disposition Clinical Impression: Right shoulder strain, Rib pain on right side Disposition: HOME SELF-CARE Condition: Good Instructions (If sedation given, give patient instructions): Shoulder Pain (ED ), Rib Contusion (ED) Additional Instructions: Apply ice to the painful areas. Follow-up with your primary care physician or orthopedics for further evaluation. Rest. Return to the emergency department for any new, worsening, or concerning symptoms. Prescriptions: Cyclobenzaprine [Flexeril] 10 mg PO TID #15 tab Lidocaine 5% Patch [Lidoderm] 1 patch TOPICAL DAILY #30 patch Is patient prescribed a controlled substance at d/c from ED?: No Referrals: Carmelo Garcia DO [Primary Care Provider] - 1-2 days Joni Orozco DO [Doctor of Osteopathic Medicine] - 1-2 days Time of Disposition: 20:24
[2021-07-10 19:43] VITALS: BP 148/83; PULSE 83; RESP 20
--- NOTE | 2021-07-10 20:21 | XR ---
EXAMINATION TYPE: XR ribs RT DATE OF EXAM: 07/10/2021 CLINICAL HISTORY: Right rib pain after injury. TECHNIQUE: 4 views of the right ribs obtained. COMPARISON: Same day chest x-ray FINDINGS: Right lung demonstrates no focal airspace opacity, pleural effusion, or pneumothorax. No ri ght-sided acute displaced rib fracture deformity or other osseous destructive lesion of the right rib s. IMPRESSION: No displaced right rib fracture.
[2021-07-10] MEDS ORDERED: ACET/COD 300 MG/30 MG STARTER PACK 6 TAB BTL PO STA (20:25)
== END 2021-07-10 20:37 | disposition home or self-care (01) ==
LOC: EC 16:47
DX: S46.911A Strain of unspecified muscle, fascia and tendon at shoulder and upper arm level, right arm, initial encounter (principal); M54.6 Pain in thoracic spine; R07.81 Pleurodynia; Z88.6 Allergy status to analgesic agent; W01.0XXA Fall on same level from slipping, tripping and stumbling without subsequent striking against object, initial encounter; Y92.009 Unspecified place in unspecified non-institutional (private) residence as the place of occurrence of the external cause; Y99.0 Civilian activity done for income or pay
CPT/HCPCS: 99283; 96372 ×2; 71100; 73030; 73562; 71046; J2360; J1170

== ENCOUNTER → 2021-07-11 | Outpatient (CLI) | payer OTHER ==
--- NOTE | 2021-07-11 16:10 | XR ---
EXAMINATION TYPE: XR cervical spine 5 views comp, XR thoracic spine 3 views complete DATE OF EXAM: 07/11/2021 COMPARISON: None HISTORY: 41-year-old male pain after fall 3 days ago FINDINGS: Cervical spine: No predental space widening or prevertebral soft tissue swelling. Alignment is maintained and disc in terspaces are preserved. No significant bony neuroforaminal narrowing is seen. Normal odontoid view. Thoracic spine: 12 rib-bearing thoracic vertebral bodies. All pedicles are visualized. Mild degenerative disc disease mid thoracic spine. Vertebral body heights are preserved and alignment is maintained. IMPRESSION: 1. Cervical spine: No prevertebral soft tissue swelling or malalignment. No acute fracture seen. 2. Thoracic spine: Mild degenerative disc disease midthoracic spine. No vertebral compression collaps e or malalignment.
== END | disposition home or self-care (01) ==
LOC: RADXRMAIN 15:33
PROVIDERS: ATTEND Emergency Medicine
DX: M51.34 Other intervertebral disc degeneration, thoracic region (principal); W19.XXXA Unspecified fall, initial encounter
CPT/HCPCS: 72050; 72072

== ENCOUNTER → 2021-07-15 | Outpatient (CLI) | payer OTHER ==
--- NOTE | 2021-07-15 13:41 | CT ---
EXAMINATION TYPE: CT brain kurt barnes DATE OF EXAM: 07/15/2021 COMPARISON: none HISTORY: Trip and fall 07/01/21. New onset right facial numbness. Neck pain. CT DLP: 1778.[address] Brain: Unenhanced CT of the brain was performed. The ventricles, basal cisterns and sulci overlying the cerebral convexities demonstrate a normal appe arance. There is no evidence for intracranial hemorrhage or sulcal effacement. No mass effects are seen. If symptoms persist consider MRI. Osseous calvarium is intact. IMPRESSION: No acute intracranial process CT Cervical Spine: Unenhanced CT of the cervical spine was performed with bone and soft tissue window settings submitted . Coronal and sagittal reconstruction is obtained. There is normal alignment and prevertebral soft tissues. I do not see evidence for fracture or sublu xation. No significant degenerative changes are present. The lung apices are clear. IMPRESSION: No evidence for acute fracture or subluxation of the cervical spine.
== END | disposition home or self-care (01) ==
LOC: RADCTMAIN 12:51
PROVIDERS: ATTEND Emergency Medicine
DX: M54.2 Cervicalgia (principal); R20.0 Anesthesia of skin; W19.XXXA Unspecified fall, initial encounter
CPT/HCPCS: 70450; 72125

== ENCOUNTER → 2021-07-23 | Outpatient (CLI) | payer OTHER ==
--- NOTE | 2021-07-23 10:44 | XR ---
EXAMINATION TYPE: XR chest 2V, XR ribs RT DATE OF EXAM: 07/23/2021 COMPARISON: Chest and right rib x-rays July 10, 2021 HISTORY: Recent injury July 01 with persistent chest and right-sided rib pain. TECHNIQUE: Frontal and lateral views of the chest are obtained. A frontal and oblique images right-s ided ribs. FINDINGS: There is no new suspicious focal air space opacity, pleural effusion, or pneumothorax seen . The cardiac silhouette size is stable and within normal limits. The osseous structures are intac t. No acute or subacute displaced right-sided rib fracture is seen. Overlying soft tissue is unremarkabl e. IMPRESSION: 1. No acute cardiopulmonary process. 2. No acute or subacute displaced right-sided rib fracture. No significant change from prior.
== END | disposition home or self-care (01) ==
LOC: RADXRMAIN 09:38
PROVIDERS: ATTEND Emergency Medicine
DX: R07.81 Pleurodynia (principal)
CPT/HCPCS: 71046

== ENCOUNTER → 2021-08-06 | Outpatient (CLI) | payer OTHER ==
--- NOTE | 2021-08-06 10:15 | XR ---
EXAMINATION TYPE: XR shoulder complete RT DATE OF EXAM: 08/06/2021 CLINICAL HISTORY: Persistent pain, fall injury several weeks ago. TECHNIQUE: Three views of the right shoulder are obtained. COMPARISON: Prior right shoulder x-ray July 10, 2021. FINDINGS: There is no acute fracture/dislocation evident in the right shoulder. The acromioclavicul ar and glenohumeral joint spaces appear stable and within normal limits. Distal acromion morphology r emains unremarkable. The visualized ribs remain intact. IMPRESSION: As above. No significant change from prior.
== END | disposition home or self-care (01) ==
LOC: RADXRMAIN 09:30
PROVIDERS: ATTEND Emergency Medicine
DX: M25.511 Pain in right shoulder (principal); S49.91XA Unspecified injury of right shoulder and upper arm, initial encounter

== ENCOUNTER 2022-05-22 06:06 | Emergency (ER) | payer OTHER ==
[2022-05-22 06:13] VITALS: BP 139/92; PULSE 92; RESP 22; TEMP 98.7
[2022-05-22] MEDS ORDERED: AMOXIC-POT CLAV 875MG STARTER PACK 2 TAB BTL PO STA (06:27)
--- NOTE | 2022-05-22 06:28 | ED ---
ENT HPI - General Chief complaint: ENT Stated complaint: Ear Pain Time Seen by Provider: 05/22/22 06:16 Source: patient, RN notes reviewed Mode of arrival: ambulatory Limitations: no limitations - History of Present Illness Initial comments: 42-year-old male presents emergency Department with chief complaint of left ear pain. Patient states started a week ago with nasal congestion postnasal drainage that she was not worried about states her last 2-3 days she's having increasing left ear pain, swelling and redness. Patient states that this pain deep into the surface. Patient denies any trauma no fevers chills no neck pain or neck stiffness or shortness around here and side of his neck though. Patient denies any difficulty breathing no other complaints. - Related Data Home Medications Medication Instructions Recorded Confirmed predniSONE [Deltasone] 40 mg PO DAILY 10/29/18 10/29/18 Previous Rx's Medication Instructions Recorded Cephalexin [Keflex] 500 mg PO Q6HR #40 cap 09/29/19 Naproxen [Naprosyn] 500 mg PO Q12HR PRN #30 tab 09/29/19 Cyclobenzaprine [Flexeril] 10 mg PO TID #15 tab 07/10/21 Lidocaine 5% Patch [Lidoderm] 1 patch TOPICAL DAILY #30 patch 07/10/21 Amoxic-Pot Clav 875-125Mg 1 tab PO Q12HR #20 tab 05/22/22 [Augmentin 875-125] Allergies Allergy/AdvReac Type Severity Reaction Status Date / Time ketorolac [From Toradol] AdvReac Abdominal Verified 05/22/22 06:12 Pain Review of Systems ROS Statement: Those systems with pertinent positive or pertinent negative responses have been documented in the HPI. ROS Other: All systems not noted in ROS Statement are negative. Past Medical History Past Medical History: GERD/Reflux Additional Past Medical History / Comment(s): HX OF MONO (2016), FREQUENT DIARRHEA, BACK, STOMACH AND FOOT PAIN., PLANTAR FASCIITIS. History of Any Multi-Drug Resistant Organisms: None Reported Past Surgical History: Orthopedic Surgery Additional Past Surgical History / Comment(s): RIGHT FOOT SURGERY FOR GLASS INJURY (17YRS OLD), COLONOSCOPY , EGD. Past Anesthesia/Blood Transfusion Reactions: No Reported Reaction, Motion Sickness Past Psychological History: No Psychological Hx Reported Smoking Status: Never smoker Past Alcohol Use History: None Reported Past Drug Use History: None Reported - Past Family History Mother Family Medical History: Diabetes Mellitus General Exam Limitations: no limitations General appearance: alert, in no apparent distress Head exam: Present: atraumatic, normocephalic, normal inspection Eye exam: Present: normal appearance, PERRL, EOMI. Absent: scleral icterus, conjunctival injection, periorbital swelling ENT exam: Present: normal oropharynx, mucous membranes moist. Absent: normal exam, TM's normal bilaterally (Left TM erythematous), normal external ear exam (Left ear is swollen, mild erythema and tenderness with palpation) Neck exam: Present: normal inspection. Absent: tenderness, meningismus, lymphadenopathy Respiratory exam: Present: normal lung sounds bilaterally. Absent: respiratory distress, wheezes, rales, rhonchi, stridor Cardiovascular Exam: Present: regular rate, normal rhythm, normal heart sounds. Absent: systolic murmur, diastolic murmur, rubs, gallop, clicks Course Vital Signs 05/22/22 06:08 Temperature 98.7 F Pulse Rate 92 Respiratory 22 Rate Blood Pressure 139/92 O2 Sat by Pulse 97 Oximetry Medical Decision Making - Medical Decision Making Patient does have noted otitis media is concerning changes the left ear with swelling, erythema. Patient was started on Augmentin patient have close follow- up for recheck of his ear and return parameters were discussed. Patient agrees to plan. Disposition Clinical Impression: Left otitis media, Cellulitis of left ear Disposition: HOME SELF-CARE Condition: Stable Instructions (If sedation given, give patient instructions): Earache (ED) Additional Instructions: Please return to the Emergency Department if symptoms worsen or any other concerns. Prescriptions: Amoxic-Pot Clav 875-125Mg [Augmentin 875-125] 1 tab PO Q12HR #20 tab Is patient prescribed a controlled substance at d/c from ED?: No Referrals: Carmelo Garcia DO [Primary Care Provider] - 1-2 days Time of Disposition: 06:28
== END 2022-05-22 06:33 | disposition home or self-care (01) ==
LOC: EC 06:06
DX: H66.92 Otitis media, unspecified, left ear (principal); H60.12 Cellulitis of left external ear; Z88.5 Allergy status to narcotic agent
CPT/HCPCS: 99282

== ENCOUNTER 2022-09-15 12:16 | Emergency (ER) | payer OTHER ==
[2022-09-15] MEDS ORDERED: SODIUM CHLORIDE 0.9% 500 ML 500 ML IV STA (15:15)
[2022-09-15] MEDS ORDERED: KETOROLAC 15 MG/ML 1 ML VIAL IVP STA (15:18)
--- NOTE | 2022-09-15 15:29 | ED ---
General Adult HPI - General Chief complaint: Upper Respiratory Infection Stated complaint: covid+, worsening symptoms Time Seen by Provider: 09/15/22 15:07 Source: patient, RN notes reviewed, old records reviewed Mode of arrival: ambulatory Limitations: no limitations - History of Present Illness Initial comments: 42-year-old well-appearing male presents to the emergency room with complaints of cough, shortness of breath, right-sided flank pain and right eye drainage. Patient states that he was diagnosed with coronavirus 9 days ago. He has been vaccinated and boosted. He works at [employer] has had multiple exposures. Patient states that his primary care doctor prescribed him Paxlovid which he finished yesterday. Continues to have a dry cough, shortness of breath, right- sided flank pain and increased urination. Denies any chest pain, vomiting or diarrhea. States he does have nausea with cough. Primary care doctor recommended he come to the emergency room for evaluation of his multiple complaints. -: days(s) (9) Location: back, right Severity scale (1-10): 8 Quality: constant Consistency: constant Associated Symptoms: cough, shortness of breath Treatments Prior to Arrival: other (Paxlovid) - Related Data Home Medications Medication Instructions Recorded Confirmed predniSONE [Deltasone] 40 mg PO DAILY 10/29/18 10/29/18 Previous Rx's Medication Instructions Recorded Cephalexin [Keflex] 500 mg PO Q6HR #40 cap 09/29/19 Naproxen [Naprosyn] 500 mg PO Q12HR PRN #30 tab 09/29/19 Cyclobenzaprine [Flexeril] 10 mg PO TID #15 tab 07/10/21 Lidocaine 5% Patch [Lidoderm] 1 patch TOPICAL DAILY #30 patch 07/10/21 Amoxic-Pot Clav 875-125Mg 1 tab PO Q12HR #20 tab 05/22/22 [Augmentin 875-125] Allergies Allergy/AdvReac Type Severity Reaction Status Date / Time ketorolac [From Toradol] AdvReac Abdominal Verified 09/15/22 12:41 Pain Review of Systems ROS Statement: Those systems with pertinent positive or pertinent negative responses have been documented in the HPI. ROS Other: All systems not noted in ROS Statement are negative. Past Medical History Past Medical History: GERD/Reflux Additional Past Medical History / Comment(s): HX OF MONO (2016), FREQUENT DIARRHEA, BACK, STOMACH AND FOOT PAIN., PLANTAR FASCIITIS. History of Any Multi-Drug Resistant Organisms: None Reported Past Surgical History: Orthopedic Surgery Additional Past Surgical History / Comment(s): RIGHT FOOT SURGERY FOR GLASS INJURY (17YRS OLD), COLONOSCOPY , EGD. Past Anesthesia/Blood Transfusion Reactions: No Reported Reaction, Motion Sickness Past Psychological History: No Psychological Hx Reported Smoking Status: Never smoker Past Alcohol Use History: None Reported Past Drug Use History: None Reported - Past Family History Mother Family Medical History: Diabetes Mellitus General Exam Limitations: no limitations General appearance: alert, in no apparent distress Head exam: Present: atraumatic Eye exam: Present: EOMI, other (Eyelid swelling with yellow crusts). Absent: scleral icterus ENT exam: Present: mucous membranes moist Neck exam: Present: full ROM. Absent: tenderness, meningismus Respiratory exam: Present: normal lung sounds bilaterally. Absent: respiratory distress, wheezes Cardiovascular Exam: Present: regular rate, normal rhythm GI/Abdominal exam: Present: soft. Absent: distended, tenderness, guarding, r ebound, rigid Extremities exam: Present: normal inspection, full ROM, normal capillary refill. Absent: pedal edema Back exam: Present: normal inspection, full ROM. Absent: tenderness, CVA tenderness (R), CVA tenderness (L), paraspinal tenderness, vertebral tenderness, rash noted Neurological exam: Present: alert, oriented X3 Psychiatric exam: Present: normal affect, normal mood Skin exam: Present: warm, dry, normal color. Absent: cyanosis, diaphoretic, petechiae, pallor Course Vital Signs 09/15/22 09/15/22 12:38 17:11 Temperature 98.6 F 98.9 F Pulse Rate 91 71 Respiratory 20 18 Rate Blood Pressure 145/89 118/77 O2 Sat by Pulse 99 98 Oximetry EKG Findings - EKG Results: EKG: sinus rhythm (Ventricular rate 68, WV interval 0.171, QRS 0.106, QTC 0.382; normal axis) Medical Decision Making - Medical Decision Making Patient diagnosed with coronavirus 9 days ago. Has been vaccinated and boosted. Finished Paxlovid yesterday. Labs show no acute abnormalities. Urinalysis without evidence of blood or infection. EKG interpreted by me shows sinus rhythm with no acute changes c ompared to old 09/29/2019. Troponin negative at 0.012. Chest x-ray interpreted me by me shows no consolidation. The radiologist read shows no acute pulmonary process. He was given IV fluids and Toradol with pain relief. Lungs sounds are clear to auscultation, vital signs are stable. Patient is we ll-appearing. This is likely myalgias status post coronavirus. He was directed to increase his fluid intake, take vitamin C, vitamin D and zinc daily. Return to the emergency room with any new or concerning symptoms follow-up with his primary care doctor this week. Patient is agreeable to this plan of care. Case discussed with Dr. Lockett - Lab Data Result diagrams: 09/15/22 15:30 09/15/22 15:30 Lab Results 09/15/22 09/15/22 09/15/22 Range/Units 15:30 15:30 15:30 WBC 9.8 (3.8-10.6) k/uL RBC 5.61 (4.30-5.90) m/uL Hgb 16.6 (13.0-17.5) gm/dL Hct 47.5 (39.0-53.0) % MCV 84.7 (80.0-100.0) fL MCH 29.7 (25.0-35.0) pg MCHC 35.0 (31.0-37.0) g/dL RDW 13.4 (11.5-15.5) % Plt Count 314 (150-450) k/uL MPV 7.3 Neutrophils % 67 % Lymphocytes % 24 % Monocytes % 5 % Eosinophils % 2 % Basophils % 1 % Neutrophils # 6.6 (1.3-7.7) k/uL Lymphocytes # 2.4 (1.0-4.8) k/uL Monocytes # 0.5 (0-1.0) k/uL Eosinophils # 0.2 (0-0.7) k/uL Basophils # 0.1 (0-0.2) k/uL PT 10.3 (9.0-12.0) sec INR 0.9 (<1.2) APTT 23.9 (22.0-30.0) sec Sodium 138 (137-145) mmol/L Potassium 4.2 (3.5-5.1) mmol/L Chloride 102 (98-107) mmol/L Carbon Dioxide 27 (22-30) mmol/L Anion Gap 9 mmol/L BUN 12 (9-20) mg/dL Creatinine 0.88 (0.66-1.25) mg/dL Est GFR (CKD-EPI)AfAm >90 (>60 ml/min/1.73 sqM) Est GFR (CKD-EPI)NonAf >90 (>60 ml/min/1.73 sqM) Glucose 101 H (74-99) mg/dL Plasma Lactic Acid [place] (0.7-2.0) mmol/L Calcium 9.4 (8.4-10.2) mg/dL Magnesium 2.2 (1.6-2.3) mg/dL Total Bilirubin 0.5 (0.2-1.3) mg/dL AST 23 (17-59) U/L ALT 23 (4-49) U/L Alkaline Phosphatase 94 (38-126) U/L Troponin I (0.000-0.034) ng/mL Total Protein 8.0 (6.3-8.2) g/dL Albumin 4.6 (3.5-5.0) g/dL Urine Color Urine Appearance (Clear) Urine pH (5.0-8.0) Ur Specific [place] (1.001-1.035) Urine Protein (Negative) Urine Glucose (UA) (Negative) Urine Ketones (Negative) Urine Blood (Negative) Urine Nitrite (Negative) Urine Bilirubin (Negative) Urine Urobilinogen (<2.0) mg/dL Ur Leukocyte Esterase (Negative) 09/15/22 09/15/22 09/15/22 Range/Units 15:30 15:30 15:30 WBC (3.8-10.6) k/uL RBC (4.30-5.90) m/uL Hgb (13.0-17.5) gm/dL Hct (39.0-53.0) % MCV (80.0-100.0) fL MCH (25.0-35.0) pg MCHC (31.0-37.0) g/dL RDW (11.5-15.5) % Plt Count (150-450) k/uL MPV Neutrophils % % Lymphocytes % % Monocytes % % Eosinophils % % Basophils % % Neutrophils # (1.3-7.7) k/uL Lymphocytes # (1.0-4.8) k/uL Monocytes # (0-1.0) k/uL Eosinophils # (0-0.7) k/uL Basophils # (0-0.2) k/uL PT (9.0-12.0) sec INR (<1.2) APTT (22.0-30.0) sec Sodium (137-145) mmol/L Potassium (3.5-5.1) mmol/L Chloride (98-107) mmol/L Carbon Dioxide (22-30) mmol/L Anion Gap mmol/L BUN (9-20) mg/dL Creatinine (0.66-1.25) mg/dL Est GFR (CKD-EPI)AfAm (>60 ml/min/1.73 sqM) Est GFR (CKD-EPI)NonAf (>60 ml/min/1.73 sqM) Glucose (74-99) mg/dL Plasma Lactic Acid [place] 1.4 (0.7-2.0) mmol/L Calcium (8.4-10.2) mg/dL Magnesium (1.6-2.3) mg/dL Total Bilirubin (0.2-1.3) mg/dL AST (17-59) U/L ALT (4-49) U/L Alkaline Phosphatase (38-126) U/L Troponin I <0.012 (0.000-0.034) ng/mL Total Protein (6.3-8.2) g/dL Albumin (3.5-5.0) g/dL Urine Color Yellow Urine Appearance Clear (Clear) Urine pH 5.5 (5.0-8.0) Ur Specific [place] 1.020 (1.001-1.035) Urine Protein Trace H (Negative) Urine Glucose (UA) Negative (Negative) Urine Ketones Negative (Negative) Urine Blood Negative (Negative) Urine Nitrite Negative (Negative) Urine Bilirubin Negative (Negative) Urine Urobilinogen <2.0 (<2.0) mg/dL Ur Leukocyte Esterase Negative (Negative) Disposition Clinical Impression: Acute upper respiratory infection Disposition: HOME SELF-CARE Condition: Good Instructions (If sedation given, give patient instructions): Upper Respiratory Infection (ED) Additional Instructions: Increase your fluid intake. Take vitamin C, vitamin D and zinc daily to improve immune health. Follow-up with your primary care doctor this week. Return to the emergency room with any new or concerning symptoms. Is patient prescribed a controlled substance at d/c from ED?: No Referrals: Nonstaff,Physician [Primary Care Provider] - 1-2 days Time of Disposition: 16:48
[2022-09-15 15:42] LABS: Basophils # (A) 0.1 k/uL (0-0.2); Basophils % (A) 1 %; Eosinophils # (A) 0.2 k/uL (0-0.7); Eosinophils % (A) 2 %; HCT 47.5 % (39.0-53.0); HGB 16.6 gm/dL (13.0-17.5); Lymphocytes # (A) 2.4 k/uL (1.0-4.8); Lymphocytes % (A) 24 %; MCH 29.7 pg (25.0-35.0); MCV 84.7 fL (80.0-100.0); Mean Platelet Volume 7.3; Monocytes # (A) 0.5 k/uL (0-1.0); Monocytes % (A) 5 %; Neutrophils # (A) 6.6 k/uL (1.3-7.7); Neutrophils % (A) 67 %; Platelet Count 314 k/uL (150-450); RBC 5.61 m/uL (4.30-5.90); RDW 13.4 % (11.5-15.5); WBC 9.8 k/uL (3.8-10.6)
[2022-09-15 15:44] LABS: Appearance,Urine Clear (Clear); Bilirubin,Urine Negative (Negative); Blood,Urine Negative (Negative); Color,Urine Yellow; Glucose,Urine (UA) Negative (Negative); Ketones,Urine Negative (Negative); Leukocyte Esterase,Urine Negative (Negative); Nitrite,Urine Negative (Negative); PH, Urine 5.5 (5.0-8.0); Protein,Urine Trace (Negative); Urobilinogen,Urine <2.0 mg/dL (<2.0)
[2022-09-15 15:50] LABS: INR 0.9 (<1.2); Partial Thromboplastin Time 23.9 sec (22.0-30.0); Prothrombin Time 10.3 sec (9.0-12.0)
[2022-09-15 15:51] LABS: ALT 23 U/L (4-49); AST 23 U/L (17-59); African American GFR (CKD) >90 (>60 ml/min/1.73 sqM); Albumin 4.6 g/dL (3.5-5.0); Alkaline Phosphatase 94 U/L (38-126); Anion Gap 9 mmol/L; Blood Urea Nitrogen 12 mg/dL (9-20); Calcium 9.4 mg/dL (8.4-10.2); Carbon Dioxide 27 mmol/L (22-30); Chloride 102 mmol/L (98-107); Glucose 101 mg/dL (74-99); Magnesium 2.2 mg/dL (1.6-2.3); Non-African American GFR(CKD) >90 (>60 ml/min/1.73 sqM); Potassium 4.2 mmol/L (3.5-5.1); Sodium 138 mmol/L (137-145); Total Bilirubin 0.5 mg/dL (0.2-1.3)
--- NOTE | 2022-09-15 16:11 | XR ---
EXAMINATION TYPE: XR chest 2V DATE OF EXAM: 09/15/2022 COMPARISON: 07/23/2021 INDICATION: Cough, covid TECHNIQUE: Frontal and lateral views of the chest are obtained. FINDINGS: The heart size is normal. The pulmonary vasculature is normal. The lungs are clear. IMPRESSION: 1. No acute pulmonary process.
[2022-09-15 17:13] VITALS: BP 118/77; PULSE 71; RESP 18; TEMP 98.9
== END 2022-09-15 17:13 | disposition home or self-care (01) ==
LOC: EC 12:16
DX: J06.9 Acute upper respiratory infection, unspecified (principal); K21.9 Gastro-esophageal reflux disease without esophagitis; Z79.899 Other long term (current) drug therapy; Z88.6 Allergy status to analgesic agent
CPT/HCPCS: 36415; 71046; 80053; 81003; 83605; 83735; 84484; 85025; 85610; 85730; 93005; 96360; 99284

== ENCOUNTER 2022-10-15 21:05 | Emergency (ER) | payer OTHER ==
[2022-10-15 22:54] VITALS: TEMP 98.7
[2022-10-16] MEDS ORDERED: SODIUM CHLORIDE 0.9% 1,000 ML IV STA (00:46)
[2022-10-16] MEDS ORDERED: ONDANSETRON 4 MG/2 ML VIAL IVP STA (00:46)
[2022-10-16] MEDS ORDERED: MORPHINE SULFATE 4 MG/ML SYRINGE IV STA (00:46)
--- NOTE | 2022-10-16 00:56 | ED ---
Abdominal Pain HPI - General Chief Complaint: Abdominal Pain Stated Complaint: ABD pain Time Seen by Provider: 10/16/22 00:39 Source: patient, RN notes reviewed Mode of arrival: ambulatory Limitations: no limitations - History of Present Illness Initial Comments: Patient presents with abdominal pain which has been worsening over the past few weeks. Patient states it seemed to start after he had COVID-19 was placed on Paxlovid. Patient having abdominal pain which radiates to the right back area. Patient also has some nausea and vomiting. Patient has having diarrhea. Denying any hematemesis or coffee-ground emesis. No hematochezia or melena. No headache, no fever or chills, no changes in vision or hearing, no sore throat or difficulty with speech, no neck pain, no chest pain or shortness of breath, , no changes in urination or bowel movements, no numbness or tingling, no extremity pain, no skin rashes or lesions. Past medical, surgical, social, and family history reviewed. MD Complaint: abdominal pain - Related Data Home Medications Medication Instructions Recorded Confirmed predniSONE [Deltasone] 40 mg PO DAILY 10/29/18 10/29/18 Previous Rx's Medication Instructions Recorded Cephalexin [Keflex] 500 mg PO Q6HR #40 cap 09/29/19 Naproxen [Naprosyn] 500 mg PO Q12HR PRN #30 tab 09/29/19 Cyclobenzaprine [Flexeril] 10 mg PO TID #15 tab 07/10/21 Lidocaine 5% Patch [Lidoderm] 1 patch TOPICAL DAILY #30 patch 07/10/21 Amoxic-Pot Clav 875-125Mg 1 tab PO Q12HR #20 tab 05/22/22 [Augmentin 875-125] Dicyclomine [Bentyl] 20 mg PO QID #24 tablet 10/16/22 Sucralfate [Carafate] 1 gm PO BID 10 Days #20 ml 10/16/22 Allergies Allergy/AdvReac Type Severity Reaction Status Date / Time ketorolac [From Toradol] AdvReac Abdominal Verified 10/15/22 22:54 Pain Review of Systems ROS Statement: Those systems with pertinent positive or pertinent negative responses have been documented in the HPI. ROS Other: All systems not noted in ROS Statement are negative. Past Medical History Past Medical History: GERD/Reflux Additional Past Medical History / Comment(s): HX OF MONO (2016), FREQUENT DIARRHEA, BACK, STOMACH AND FOOT PAIN., PLANTAR FASCIITIS. History of Any Multi-Drug Resistant Organisms: None Reported Past Surgical History: Orthopedic Surgery Additional Past Surgical History / Comment(s): RIGHT FOOT SURGERY FOR GLASS INJURY (17YRS OLD), COLONOSCOPY , EGD. Past Anesthesia/Blood Transfusion Reactions: No Reported Reaction, Motion Sickness Past Psychological History: No Psychological Hx Reported Smoking Status: Never smoker Past Alcohol Use History: None Reported Past Drug Use History: None Reported - Past Family History Mother Family Medical History: Diabetes Mellitus General Exam Limitations: no limitations Course Vital Signs 10/15/22 10/16/22 10/16/22 22:51 02:16 02:30 Temperature 98.7 F Pulse Rate 76 67 73 Respiratory 20 16 16 Rate Blood Pressure 145/102 146/85 133/95 O2 Sat by Pulse 97 95 95 Oximetry - Reevaluation(s) Reevaluation #1: 10/16/22 03:23 Medical record is reviewed Symptoms are improved here in the emergency department Patient is informed of results and questions answered Patient in no distress Medical Decision Making - Medical Decision Making Patient present with several nondescript symptoms. Patient has symptoms consistent with acid reflux. However patient also has generalized abdominal pain raising the suspicion of enteritis or even inflammatory bowel disease. Computed tomography scan interpreted by me shows no acute findings. I did review the radiology interpretation which shows a dilated proximal jejunum of undetermined significance. There was no evidence of appendicitis or other infectious/inflammatory etiology. Patient's laboratory investigations were essentially normal. I did consider gallbladder ultrasound. However patient symptomology not entirely consistent with gallbladder disease. Given the patient's laboratory findings. I believe we can forego this modality and have patient follow-up with gastroenterology. Patient previously has been established with the compress engineer. Patient was told to return to the ER for any signs or symptoms worsen. Told to return immediately if any other problems arise. All questions answered. Treatment plan discussed. Patient in agreement Every effort has been made to ensure accuracy of this dictation. However, due to the limitations of electronic medical records and dictation devices, errors in charting still occur. The case was discussed in detail with ED attending physician. Presentation, findings, treatment plan discussed in detail. Supervising Dr. Ayala - Lab Data Result diagrams: 10/16/22 01:22 12/01/22 01:22 Lab Results 10/16/22 10/16/22 10/16/22 Range/Units :07 12:07 12: WBC 10.1 (3.8-10.6) k/uL RBC 5.13 (4.30-5.90) m/uL Hgb 15.1 (13.0-17.5) gm/dL Hct 44.0 (39.0-53.0) % MCV 85.7 (80.0-100.0) fL MCH 29.3 (25.0-35.0) pg MCHC 34.2 (31.0-37.0) g/dL RDW 13.3 (11.5-15.5) % Plt Count 292 (150-450) k/uL MPV 7.1 Neutrophils % 60 % Lymphocytes % 29 % Monocytes % 6 % Eosinophils % 2 % Basophils % 1 % Neutrophils # 6.1 (1.3-7.7) k/uL Lymphocytes # 2.9 (1.0-4.8) k/uL Monocytes # 0.6 (0-1.0) k/uL Eosinophils # 0.2 (0-0.7) k/uL Basophils # 0.1 (0-0.2) k/uL Sodium 135 L (137-145) mmol/L Potassium 4.0 (3.5-5.1) mmol/L Chloride 106 (98-107) mmol/L Carbon Dioxide 24 (22-30) mmol/L Anion Gap 5 mmol/L BUN 19 (9-20) mg/dL Creatinine 0.86 (0.66-1.25) mg/dL Est GFR (CKD-EPI)AfAm >90 (>60 ml/min/1.73 sqM) Est GFR (CKD-EPI)NonAf >90 (>60 ml/min/1.73 sqM) Glucose 102 H (74-99) mg/dL Calcium 8.6 (8.4-10.2) mg/dL Total Bilirubin 0.3 (0.2-1.3) mg/dL AST 19 (17-59) U/L ALT 19 (4-49) U/L Alkaline Phosphatase 83 (38-126) U/L Total Protein 6.9 (6.3-8.2) g/dL Albumin 4.1 (3.5-5.0) g/dL Lipase 152 (23-300) U/L Urine Color Yellow Urine Appearance Clear (Clear) Urine pH 5.5 (5.0-8.0) Ur Specific [place] 1.029 (1.001-1.035) Ur Protein Confirm Trace (Negative) Urine Glucose (UA) Negative (Negative) Urine Ketones Negative (Negative) Urine Blood Negative (Negative) Urine Nitrite Negative (Negative) Urine Bilirubin Negative (Negative) Ur Bilirubin Confirm Negative (Negative) Urine Urobilinogen <2.0 (<2.0) mg/dL Ur Leukocyte Esterase Negative (Negative) Urine RBC <1 (0-5) /hpf Urine WBC 2 (0-5) /hpf Ur Squamous Epith Cells 1 (0-4) /hpf Urine Mucus Rare H (None) /hpf - Radiology Data Radiology results: report reviewed, image reviewed Disposition Clinical Impression: Abdominal pain, Gastritis Disposition: HOME SELF-CARE Condition: Stable Instructions (If sedation given, give patient instructions): Abdominal Pain (ED) Additional Instructions: Increase omeprazole to 40 mg daily. Call in a.m. to set up follow-up appointment with the compress engineer as discussed. Clear liquid diet for the next 24 hours. Follow-up with your regular physician as directed. Return to the ER immediately if any symptoms worsen, new symptoms arise, or any other problems develop. Prescriptions: Dicyclomine [Bentyl] 20 mg PO QID #24 tablet Sucralfate [Carafate] 1 gm PO BID 10 Days #20 ml Is patient prescribed a controlled substance at d/c from ED?: No Referrals: Sissy Ocampo MD [STAFF PHYSICIAN] - As Soon As Possible Time of Disposition: 03:22
[2022-10-16 01:29] LABS: Basophils # (A) 0.1 k/uL (0-0.2); Basophils % (A) 1 %; Eosinophils # (A) 0.2 k/uL (0-0.7); Eosinophils % (A) 2 %; HGB 15.1 gm/dL (13.0-17.5); Lymphocytes # (A) 2.9 k/uL (1.0-4.8); Lymphocytes % (A) 29 %; MCH 29.3 pg (25.0-35.0); MCHC 34.2 g/dL (31.0-37.0); MCV 85.7 fL (80.0-100.0); Mean Platelet Volume 7.1; Monocytes # (A) 0.6 k/uL (0-1.0); Monocytes % (A) 6 %; Neutrophils # (A) 6.1 k/uL (1.3-7.7); Neutrophils % (A) 60 %; Platelet Count 292 k/uL (150-450); RBC 5.13 m/uL (4.30-5.90); RDW 13.3 % (11.5-15.5); WBC 10.1 k/uL (3.8-10.6)
[2022-10-16 01:40] LABS: ALT 19 U/L (4-49); AST 19 U/L (17-59); African American GFR (CKD) >90 (>60 ml/min/1.73 sqM); Albumin 4.1 g/dL (3.5-5.0); Alkaline Phosphatase 83 U/L (38-126); Anion Gap 5 mmol/L; Blood Urea Nitrogen 19 mg/dL (9-20); Calcium 8.6 mg/dL (8.4-10.2); Carbon Dioxide 24 mmol/L (22-30); Chloride 106 mmol/L (98-107); Glucose 102 mg/dL (74-99); Lipase 152 U/L (23-300); Non-African American GFR(CKD) >90 (>60 ml/min/1.73 sqM); Sodium 135 mmol/L (137-145); Total Bilirubin 0.3 mg/dL (0.2-1.3); Total Protein 6.9 g/dL (6.3-8.2)
[2022-10-16 01:56] LABS: Mucus,Urine Rare /hpf; RBC,Urine <1 /hpf (0-5); Squamous Epithelial Cell,Urine 1 /hpf (0-4); WBC,Urine 2 /hpf (0-5)
[2022-10-16 02:33] VITALS: RESP 16
--- NOTE | 2022-10-16 02:48 | XR ---
EXAMINATION TYPE: XR chest 1V portable DATE OF EXAM: 10/16/2022 COMPARISON: 09/15/2022 HISTORY: Abdominal pain TECHNIQUE: FINDINGS: Heart is normal. Lungs are clear of infiltrate. No heart failure. No pleural effusion. Bony thorax is intact. IMPRESSION: No active cardiopulmonary disease. Normal heart. No change.
[2022-10-16 02:54] LABS: Appearance,Urine Clear (Clear); Bilirubin Confirmation, Urine Negative (Negative); Bilirubin,Urine Negative (Negative); Blood,Urine Negative (Negative); Color,Urine Yellow; Glucose,Urine (UA) Negative (Negative); Ketones,Urine Negative (Negative); PH, Urine 5.5 (5.0-8.0); Protein Confirmation,Urine Trace (Negative); Specific Gravity,Urine 1.029 (1.001-1.035)
[2022-10-16 02:55] LABS: Leukocyte Esterase,Urine Negative (Negative); Nitrite,Urine Negative (Negative); Urobilinogen,Urine <2.0 mg/dL (<2.0)
--- NOTE | 2022-10-16 02:58 | CT ---
EXAMINATION TYPE: CT abdomen pelvis wo con DATE OF EXAM: 10/16/2022 COMPARISON: 06/24/2017 HISTORY: RLQ PAIN CT DLP: 3569.2 mGycm Automated exposure control for dose reduction was used. Images obtained from the diaphragm to the floor the pelvis without contrast. The lung bases are clear of infiltrate. No pleural effusion. Heart size is normal. No pericardial eff usion. Liver spleen stomach pancreas gallbladder appear intact. The bile ducts are not dilated. There is no adrenal mass. Kidneys show normal size and contour. There is contrast in both kidneys. Th ere is contrast in the urinary bladder which distends smoothly. No inguinal hernia. No free fluid in the pelvis. No evidence of a pelvic mass. Appendix is posterior and appears normal. There are some dilated jejunum in the left upper quadrant measuring up to 3.7 cm in diameter. No lagos sition point seen. The large bowel is mostly empty. There is no mesenteric edema. No ascites. No free air. The lumbar vertebra have normal alignment. No compression fracture. Bony pelvis is intact. The hip joints are intact. IMPRESSION: There is mildly dilated proximal jejunum. This could relate to localized ileus and is a change zach red to old exam. I do not suspect a mechanical bowel obstruction. Normal appendix.
[2022-10-16 03:50] VITALS: BP 115/52; PULSE 60
== END 2022-10-16 03:50 | disposition home or self-care (01) ==
LOC: EC 21:05
DX: K29.70 Gastritis, unspecified, without bleeding (principal); Z88.8 Allergy status to other drugs, medicaments and biological substances
CPT/HCPCS: 36415; 80053; 83690; 85025; 81003; 71045; 74176; 99285; 96374; 96375; 96361; J2270; J2405

== ENCOUNTER 2023-02-01 08:28 | Emergency (ER) | payer OTHER ==
[2023-02-01 08:40] VITALS: RESP 18; TEMP 98.5
[2023-02-01] MEDS ORDERED: SODIUM CHLORIDE 0.9% 500 ML 500 ML IV STA (09:14)
[2023-02-01] MEDS ORDERED: ONDANSETRON 4 MG/2 ML VIAL IVP STA (09:14)
--- NOTE | 2023-02-01 09:27 | ED ---
General Adult HPI - General Chief complaint: Abdominal Pain Stated complaint: Abd Pain,Headache Time Seen by Provider: 02/01/23 08:40 Source: patient, RN notes reviewed, old records reviewed Mode of arrival: ambulatory Limitations: no limitations - History of Present Illness Initial comments: This is a 43-year-old male presents emergency Department complaining of lower abdominal pain. Patient states it started yesterday and it felt like just an ache across his lower abdomen both on the right and left side. Patient states that throughout the day Better and went away eventually. Patient states she woke up this morning and had the pain again but was more severe especially the longer the day went on more to hurt. Patient states he has not had any vomiting but he has had quite a bit of gastric reflux. Patient states he did have diarrhea yesterday but not today. Patient denies any fever chills per patient states she has quite a long history of abdominal pain and has never found a cause for his intermittent abdominal pain. Patient denies any chest pain difficult breathing shortest breath per patient any back pain. Patient denies dysuria hematuria urinary frequency - Related Data Home Medications Medication Instructions Recorded Confirmed Albuterol Inhaler [Ventolin Hfa 1 - 2 puff INHALATION RT-Q6H PRN 02/01/23 02/01/23 Inhaler] Amitriptyline HCl [Elavil] 10 mg PO HS 02/01/23 02/01/23 Diphenoxylate HCl/Atropine 2 tab PO QID 02/01/23 02/01/23 [Lomotil 2.5-0.025 mg Tablet] Omeprazole 20 mg PO BID 02/01/23 02/01/23 Omeprazole 40 mg PO BID PRN 02/01/23 02/01/23 Sucralfate [Carafate] 1 gm PO QID 02/01/23 02/01/23 hydroCHLOROthiazide [Hydrodiuril] 12.5 mg PO DAILY 02/01/23 02/01/23 lisinopriL [Zestril] 5 mg PO DAILY 02/01/23 02/01/23 Allergies Allergy/AdvReac Type Severity Reaction Status Date / Time Iodinated Contrast Media AdvReac Nausea Verified 02/01/23 11:39 ketorolac [From Toradol] AdvReac Abdominal Verified 02/01/23 11:39 Pain Review of Systems ROS Statement: Those systems with pertinent positive or pertinent negative responses have been documented in the HPI. ROS Other: All systems not noted in ROS Statement are negative. Past Medical History Past Medical History: GERD/Reflux Additional Past Medical History / Comment(s): HX OF MONO (2016), FREQUENT DIARRHEA, BACK, STOMACH AND FOOT PAIN., PLANTAR FASCIITIS. IBS History of Any Multi-Drug Resistant Organisms: None Reported Past Surgical History: Orthopedic Surgery Additional Past Surgical History / Comment(s): RIGHT FOOT SURGERY FOR GLASS INJURY (17YRS OLD), COLONOSCOPY , EGD. Past Anesthesia/Blood Transfusion Reactions: No Reported Reaction, Motion Sickness Past Psychological History: No Psychological Hx Reported Smoking Status: Never smoker Past Alcohol Use History: None Reported Past Drug Use History: None Reported - Past Family History Mother Family Medical History: Diabetes Mellitus General Exam - General Exam Comments Initial Comments: GENERAL: Patient is well-developed and well-nourished. Patient is nontoxic and well- hydrated and is in mild distress. ENT: Neck is soft and supple. No significant lymphadenopathy is noted. Oropharynx is clear. Moist mucous membranes. Neck has full range of motion without eliciting any pain. EYES: The sclera were anicteric and conjunctiva were pink and moist. Extraocular movements were intact and pupils were equal round and reactive to light. Eyelids were unremarkable. PULMONARY: Unlabored respirations. Good breath sounds bilaterally. No audible rales rhonchi or wheezing was noted. CARDIOVASCULAR: There is a regular rate and rhythm without any murmurs gallops or rubs. ABDOMEN: Bilateral abdominal pain on palpation no rebound SKIN: Skin is clear with no lesions or rashes and otherwise unremarkable. NEUROLOGIC: Patient is alert and oriented x3. Cranial nerves II through XII are grossly intact. Motor and sensory are also intact. Normal speech, volume and content. Symmetrical smile. MUSCULOSKELETAL: Normal extremities with adequate strength and full range of motion. LYMPHATICS: No significant lymphadenopathy is noted PSYCHIATRIC: Normal psychiatric evaluation. Limitations: no limitations Course Vital Signs 02/01/23 02/01/23 02/01/23 08:36 10:00 11:12 Temperature 98.5 F Pulse Rate 80 63 62 Respiratory 18 18 18 Rate Blood Pressure 125/84 112/71 118/81 O2 Sat by Pulse 97 97 99 Oximetry Medical Decision Making - Medical Decision Making Was pt. sent in by a medical professional or institution (Dr., PA, [facility], urgent care, hospital, or fpc...) When possible be specific @ -No Did you speak to anyone other than the patient for history (EMS, parent, family, police, friend...)? What history was obtained from this source @ -No Did you review nursing and triage notes (agree or disagree)? Why? @ -I reviewed and agree with nursing and triage notes Were old charts reviewed (outside hosp., previous admission, EMS record, old EKG, old radiological studies, urgent care reports/EKG's, fpc records)? Report findings @ -I reviewed prior radiological studies. I reviewed and compared prior lab results as well. Differential Diagnosis (chest pain, altered mental status, abdominal pain women, abdominal pain men, vaginal bleeding, weakness, fever, dyspnea, syncope, headache, dizziness, GI bleed, back pain, seizure, CVA, palpatations, mental health, musculoskeletal)? @ -Differential Abdominal Pain Men: Appendicitis, cholecystitis, diverticulosis, ischemic bowel, pancreatitis, hepatitis, UTI, gastroenteritis, AAA, incarcerated hernia, bowel obstruction, constipation, inflammatory bowel, hepatitis, peptic ulcer disease, splenic infarction, perforated viscus, testicular torsion, this is not meant to be an all-inclusive list EKG interpreted by me (3pts min.). @ -As above X-rays interpreted by me (1pt min.). @ -None done CT interpreted by me (1pt min.). @ -I interpreted computed tomography scan of the abdomen and pelvis. It showed no acute abnormality. U/S interpreted by me (1pt. min.). @ -None done What testing was considered but not performed or refused? (CT, X-rays, U/S, labs)? Why? @ -None What meds were considered but not given or refused? Why? @ -None Did you discuss the management of the patient with other professionals (professionals i.e. MARYCARMEN Quiñonez, [facility], lab, RT, psych nurse, social work manager, bid writer, teacher, chief knowledge officer, cyanide case hardener)? Give summary @ -No Was smoking cessation discussed for >3mins.? @ -No Was critical care preformed (if so, how long)? @ -No Were there social determinants of health that impacted care today? How? (Homelessness, low income, unemployed, alcoholism, drug addiction, transportation, low edu. Level, literacy, decrease access to med. care, care home, rehab)? @ -No Was there de-escalation of care discussed even if they declined (Discuss DNR or withdrawal of care, Hospice)? DNR status @ -No What co-morbidities impacted this encounter? (DM, HTN, Smoking, COPD, CAD, Cancer, CVA, ARF, Chemo, Hep., AIDS, mental health diagnosis, sleep apnea, morbid obesity)? @ -None Was patient admitted / discharged? Hospital course, mention meds given and route, prescriptions, significant lab abnormalities, going to OR and other pertinent info. @ -Patient was given Zofran sublingual as well as in the emergency department she felt much better. CAT scan did not show any abnormality. Lab work was normal. Urine was normal. Patient states she's been having this problem for quite a while and he will follow-up accordingly. Undiagnosed new problem with uncertain prognosis? @ -No Drug Therapy requiring intensive monitoring for toxicity (Heparin, Nitro, Insulin, Cardizem)? @ -No Were any procedures done? @ -No Diagnosis/symptom? @ -Abdominal pain Acute, or Chronic, or Acute on Chronic? @ -Acute on chronic Uncomplicated (without systemic symptoms) or Complicated (systemic symptoms)? @ -Uncomplicated Side effects of treatment? @ -No Exacerbation, Progression, or Severe Exacerbation? @ -No Poses a threat to life or bodily function? How? (Chest pain, [place], [place], pneumonia, PE, COPD, DKA, ARF, appy, cholecystitis, CVA, Diverticulitis, Homicidal, Suicidal, threat to staff... and all critical care pts) @ -No - Lab Data Result diagrams: 02/01/23 09:16 02/01/23 09:16 Lab Results 02/01/23 02/01/23 02/01/23 Range/Units 09:16 09:16 09:16 WBC 8.0 (3.8-10.6) k/uL RBC 5.49 (4.30-5.90) m/uL Hgb 16.3 (13.0-17.5) gm/dL Hct 45.9 (39.0-53.0) % MCV 83.6 (80.0-100.0) fL MCH 29.8 (25.0-35.0) pg MCHC 35.6 (31.0-37.0) g/dL RDW 13.5 (11.5-15.5) % Plt Count 276 (150-450) k/uL MPV 7.0 Neutrophils % 61 % Lymphocytes % 28 % Monocytes % 6 % Eosinophils % 2 % Basophils % 1 % Neutrophils # 4.9 (1.3-7.7) k/uL Lymphocytes # 2.3 (1.0-4.8) k/uL Monocytes # 0.5 (0-1.0) k/uL Eosinophils # 0.2 (0-0.7) k/uL Basophils # 0.1 (0-0.2) k/uL Sodium 138 (137-145) mmol/L Potassium 3.8 (3.5-5.1) mmol/L Chloride 103 (98-107) mmol/L Carbon Dioxide 25 (22-30) mmol/L Anion Gap 10 mmol/L BUN 16 (9-20) mg/dL Creatinine 0.82 (0.66-1.25) mg/dL Est GFR (CKD-EPI)AfAm >90 (>60 ml/min/1.73 sqM) Est GFR (CKD-EPI)NonAf >90 (>60 ml/min/1.73 sqM) Glucose 113 H (74-99) mg/dL Plasma Lactic Acid Jossue 1.1 (0.7-2.0) mmol/L Calcium 9.6 (8.4-10.2) mg/dL Magnesium (1.6-2.3) mg/dL Total Bilirubin 0.3 (0.2-1.3) mg/dL AST 22 (17-59) U/L ALT 24 (4-49) U/L Alkaline Phosphatase 73 (38-126) U/L Total Protein 7.9 (6.3-8.2) g/dL Albumin 4.6 (3.5-5.0) g/dL Amylase 42 (30-110) U/L Lipase 100 (23-300) U/L Urine Color Urine Appearance (Clear) Urine pH (5.0-8.0) Ur Specific [place] (1.001-1.035) Urine Protein (Negative) Urine Glucose (UA) (Negative) Urine Ketones (Negative) Urine Blood (Negative) Urine Nitrite (Negative) Urine Bilirubin (Negative) Urine Urobilinogen (<2.0) mg/dL Ur Leukocyte Esterase (Negative) 02/01/23 02/01/23 Range/Units 09:16 09:17 WBC (3.8-10.6) k/uL RBC (4.30-5.90) m/uL Hgb (13.0-17.5) gm/dL Hct (39.0-53.0) % MCV (80.0-100.0) fL MCH (25.0-35.0) pg MCHC (31.0-37.0) g/dL RDW (11.5-15.5) % Plt Count (150-450) k/uL MPV Neutrophils % % Lymphocytes % % Monocytes % % Eosinophils % % Basophils % % Neutrophils # (1.3-7.7) k/uL Lymphocytes # (1.0-4.8) k/uL Monocytes # (0-1.0) k/uL Eosinophils # (0-0.7) k/uL Basophils # (0-0.2) k/uL Sodium (137-145) mmol/L Potassium (3.5-5.1) mmol/L Chloride (98-107) mmol/L Carbon Dioxide (22-30) mmol/L Anion Gap mmol/L BUN (9-20) mg/dL Creatinine (0.66-1.25) mg/dL Est GFR (CKD-EPI)AfAm (>60 ml/min/1.73 sqM) Est GFR (CKD-EPI)NonAf (>60 ml/min/1.73 sqM) Glucose (74-99) mg/dL Plasma Lactic Acid Jossue (0.7-2.0) mmol/L Calcium (8.4-10.2) mg/dL Magnesium 2.1 (1.6-2.3) mg/dL Total Bilirubin (0.2-1.3) mg/dL AST (17-59) U/L ALT (4-49) U/L Alkaline Phosphatase (38-126) U/L Total Protein (6.3-8.2) g/dL Albumin (3.5-5.0) g/dL Amylase (30-110) U/L Lipase (23-300) U/L Urine Color Light Yellow Urine Appearance Clear (Clear) Urine pH 5.0 (5.0-8.0) Ur Specific [place] 1.012 (1.001-1.035) Urine Protein Negative (Negative) Urine Glucose (UA) Negative (Negative) Urine Ketones Negative (Negative) Urine Blood Negative (Negative) Urine Nitrite Negative (Negative) Urine Bilirubin Negative (Negative) Urine Urobilinogen <2.0 (<2.0) mg/dL Ur Leukocyte Esterase Negative (Negative) Disposition Clinical Impression: Abdominal pain Disposition: HOME SELF-CARE Condition: Good Instructions (If sedation given, give patient instructions): Abdominal Pain (ED) Is patient prescribed a controlled substance at d/c from ED?: No Referrals: Nonstaff,Physician [Primary Care Provider] - 1-2 days Time of Disposition: 11:59
[2023-02-01 09:36] LABS: Basophils # (A) 0.1 k/uL (0-0.2); Basophils % (A) 1 %; Eosinophils # (A) 0.2 k/uL (0-0.7); Eosinophils % (A) 2 %; HCT 45.9 % (39.0-53.0); HGB 16.3 gm/dL (13.0-17.5); Lymphocytes # (A) 2.3 k/uL (1.0-4.8); Lymphocytes % (A) 28 %; MCH 29.8 pg (25.0-35.0); MCHC 35.6 g/dL (31.0-37.0); MCV 83.6 fL (80.0-100.0); Monocytes # (A) 0.5 k/uL (0-1.0); Monocytes % (A) 6 %; Neutrophils # (A) 4.9 k/uL (1.3-7.7); Neutrophils % (A) 61 %; Platelet Count 276 k/uL (150-450); RBC 5.49 m/uL (4.30-5.90); RDW 13.5 % (11.5-15.5)
[2023-02-01 09:43] LABS: Appearance,Urine Clear (Clear); Bilirubin,Urine Negative (Negative); Blood,Urine Negative (Negative); Color,Urine Light Yellow; Glucose,Urine (UA) Negative (Negative); Ketones,Urine Negative (Negative); Leukocyte Esterase,Urine Negative (Negative); Nitrite,Urine Negative (Negative); Protein,Urine Negative (Negative); Specific Gravity,Urine 1.012 (1.001-1.035); Urobilinogen,Urine <2.0 mg/dL (<2.0)
[2023-02-01 09:45] LABS: ALT 24 U/L (4-49); AST 22 U/L (17-59); African American GFR (CKD) >90 (>60 ml/min/1.73 sqM); Albumin 4.6 g/dL (3.5-5.0); Alkaline Phosphatase 73 U/L (38-126); Amylase 42 U/L (30-110); Anion Gap 10 mmol/L; Blood Urea Nitrogen 16 mg/dL (9-20); Calcium 9.6 mg/dL (8.4-10.2); Carbon Dioxide 25 mmol/L (22-30); Chloride 103 mmol/L (98-107); Glucose 113 mg/dL (74-99); Lipase 100 U/L (23-300); Non-African American GFR(CKD) >90 (>60 ml/min/1.73 sqM); Potassium 3.8 mmol/L (3.5-5.1); Sodium 138 mmol/L (137-145); Total Bilirubin 0.3 mg/dL (0.2-1.3); Total Protein 7.9 g/dL (6.3-8.2)
--- NOTE | 2023-02-01 10:28 | CT ---
EXAMINATION TYPE: CT abdomen pelvis wo con DATE OF EXAM: 02/01/2023 COMPARISON: 10/16/2022 HISTORY: 43-year-old male Generalized abdominal pain started this am CT DLP: 1730.2 mGycm. Automated exposure control for dose reduction was used. TECHNIQUE: Contiguous axial scanning of the abdomen and pelvis without IV contrast. Coronal and sagit frantz reconstructions performed. FINDINGS: Heart normal size without pericardial effusion. Lung bases show a couple stable small 5 mm pulmonary nodules posterior right lower lobe. Questionable clinical significance. Liver mildly enlarged 18.6 cm. There may be mild fatty infiltration. Noncontrast appearance of the gallbladder, adrenal glands, kidneys, spleen, and pancreas within diane l limits. No dilated small bowel, free fluid, or free air. No mesenteric or retroperitoneal lymphadenopathy. Sc attered small mesenteric nodes are demonstrated. Tiny fatty umbilical hernia. Normal appendix. Scattered mild stool. Mildly redundant sigmoid colon. No pericolonic inflammatory ch xander. Mild circumferential bladder wall thickening. Prostate gland mildly prominent at 4.3 cm wide. No abno rmal fluid collection in the pelvis or pelvic lymphadenopathy. A few small pelvic phleboliths are not ed. There may be a small fatty right-sided inguinal hernia. Bones: Mild degenerative disc disease L5-S1. IMPRESSION: 1. Mild circumferential bladder wall thickening may be due to incomplete distention. Correlate to ex clude cystitis. 2. Mild hepatomegaly at 18.6 cm. There may be mild underlying fatty infiltration of the liver. 3. Otherwise, no acute inflammatory process identified in the abdomen or pelvis to explain the patie nt's symptoms. 4. There may be a small fatty right inguinal hernia.
[2023-02-01 11:14] VITALS: BP 118/81; PULSE 62
== END 2023-02-01 12:15 | disposition home or self-care (01) ==
LOC: EC 08:28
DX: R10.31 Right lower quadrant pain (principal); R10.32 Left lower quadrant pain; K21.9 Gastro-esophageal reflux disease without esophagitis; Z88.6 Allergy status to analgesic agent; Z91.041 Radiographic dye allergy status; Z79.899 Other long term (current) drug therapy
CPT/HCPCS: 36415; 80053; 82150; 83605; 83690; 83735; 85025; 81003; 74176; 99285; 96374; J2405

== ENCOUNTER → 2023-02-12 | Outpatient (CLI) | payer OTHER ==
--- NOTE | 2023-02-12 15:13 | P.SLEEP ---
History of Present Illness DATE: 02/12/2023 CONSULTATION/NEW PATIENT EVALUATION HISTORY OF PRESENT ILLNESS/SLEEP-WAKE EVALUATION: 43-year-old gentleman had been evaluated in the sleep center for possible obstructive sleep apnea hypopnea syndrome. SLEEP SCHEDULE: Usually sleep schedule from 11 PM to 5 AM on weekdays and from 1 am to 8-10 AM on weekend. FALLING ASLEEP: No problems with falling asleep. DURING SLEEP: Patient has a very loud snoring and witnessed episodes of stop breathing during the sleep according to his , multiple awakenings from sleep up to 4 times with up to 2 episodes of nocturia. Positive history of grinding teeth, heartburn, restless legs symptoms and leg twitching. No history of hypnogogical hallucinations, sleep paralysis, or cataplexy. DURING THE DAY/WAKE STATE: In the morning patient wake up tired, feels sleepiness during the day. [place] sleepiness scale is 15, which significantly increased and indicates sleepiness. Patient may take nap around 7 PM. PAST MEDICAL HISTORY: Acid reflux, hypertension, asthma, episodes of abdominal pain. PAST SURGICAL HISTORY: Left knee surgery. MEDICATIONS: Amitriptyline 10 mg once a day, omeprazole, sucralfate, lisinopril 5 mg once a day, hydrochlorothiazide 12.5 mg once a day, albuterol. SOCIAL HISTORY: Negative for smoking or using alcohol. FAMILY HISTORY: Heart problems, diabetes. REVIEW OF SYSTEMS: Snoring and multiple awakenings from sleep. No fevers. No double vision. No recent chest pain. No shortness of breath. No abdominal pain. No bleeding episodes. No blood in urine. No seizure episodes. PHYSICAL EXAMINATION: GENERAL: A pleasant patient without any distress. VITAL SIGNS: BP 133/90 , HR 104 , RR 16 , weight 307 pounds, height 6 foot 1 inches, body mass index 40.5 . HEENT: PERRLA, EOMI. Evaluation of oropharynx showed tongue protrudes midline, low position of soft palate Mallampati 3. NECK: Supple. No JVD. Thyroid is not palpable. 17.5 inches in circumference. LUNGS: Clear to percussion and to auscultation. Good air exchange. No wheezing or rhonchi. HEART: S1, S2 regular. No murmurs, gallops or rubs. ABDOMEN: Obese EXTREMITIES: No clubbing or cyanosis. SOFTWARE PACKAGER: Awake, alert, and oriented x3. Cranial nerves 2 to 7 intact. There is no fasciculation or atrophy noted. No focal deficits observed. ASSESSMENT: 1. Loud snoring, witnessed episodes of stop breathing during the sleep, sleepiness [place] sleepiness scale increased to 15, low position of soft palate Mallampati 3, wide neck 17.5 inches in circumference. Obstructive sleep apnea hypopnea syndrome. 2. Significant amount of twitching legs during the sleep, possibly periodic limb movements. 3. Hypertension. 4. Acid reflux. 5 asthma. 6 . Episodes of abdominal pain. 7. Status post left knee surgery. 8. Obesity, body mass index 40.5. PLAN: 1. Polysomnography for evaluation of patient's breathing during sleep and for possible periodic limb movements. 2. CPAP/BiPAP titration if sleep study confirms obstructive sleep apnea- hypopnea syndrome. 3. Preferable position during sleep on the side. 4. No driving if patient feels any sleepiness. Patient is aware of civil and criminal liability for unsafe driving. 5. Sleep hygiene with regular sleep time for at least 7.5-8 hours. 6. Watching and losing weight. Thank you very much for referring this patient for consultation. Sincerely, Raudel El MD, PhD, FAASM. Diplomat of [place] [employer], Sleep Medicine Board by [place] [employer] [place] [employer] [facility] [place] Past Medical History Past Medical History: GERD/Reflux Additional Past Medical History / Comment(s): HX OF MONO (2016), FREQUENT DIARRHEA, BACK, STOMACH AND FOOT PAIN., PLANTAR FASCIITIS. IBS History of Any Multi-Drug Resistant Organisms: None Reported Past Surgical History: Orthopedic Surgery Additional Past Surgical History / Comment(s): RIGHT FOOT SURGERY FOR GLASS INJURY (17YRS OLD), COLONOSCOPY , EGD. Past Anesthesia/Blood Transfusion Reactions: No Reported Reaction, Motion Sickness Past Psychological History: No Psychological Hx Reported Smoking Status: Never smoker Past Alcohol Use History: None Reported Past Drug Use History: None Reported - Past Family History Mother Family Medical History: Diabetes Mellitus Medications and Allergies Home Medications Medication Instructions Recorded Confirmed Type Albuterol Inhaler [Ventolin Hfa 1 - 2 puff INHALATION RT-Q6H PRN 02/01/23 02/01/23 History Inhaler] Amitriptyline HCl [Elavil] 10 mg PO HS 02/01/23 02/01/23 History Diphenoxylate HCl/Atropine 2 tab PO QID 02/01/23 02/01/23 History [Lomotil 2.5-0.025 mg Tablet] Omeprazole 20 mg PO BID 02/01/23 02/01/23 History Omeprazole 40 mg PO BID PRN 02/01/23 02/01/23 History Sucralfate [Carafate] 1 gm PO QID 02/01/23 02/01/23 History hydroCHLOROthiazide [Hydrodiuril] 12.5 mg PO DAILY 02/01/23 02/01/23 History lisinopriL [Zestril] 5 mg PO DAILY 02/01/23 02/01/23 History Allergies Allergy/AdvReac Type Severity Reaction Status Date / Time Iodinated Contrast Media AdvReac Nausea Verified 02/01/23 11:39 ketorolac [From Toradol] AdvReac Abdominal Verified 02/01/23 11:39 Pain Sleep Note - Sleep Note Sleep Note: Temperature: Pulse Rate: Respiratory Rate: Blood Pressure: SpO2: Height: Weight: BMI: Neck Circumference:
== END ==
LOC: SLEEP 14:13
PROVIDERS: ATTEND Internal Medicine
DX: G47.33 Obstructive sleep apnea (adult) (pediatric) (principal); I10 Essential (primary) hypertension; K21.9 Gastro-esophageal reflux disease without esophagitis; J45.909 Unspecified asthma, uncomplicated; Z96.652 Presence of left artificial knee joint; E66.9 Obesity, unspecified; Z68.41 Body mass index [BMI] 40.0-44.9, adult; R10.9 Unspecified abdominal pain; Z46.51 Encounter for fitting and adjustment of gastric lap band; G47.61 Periodic limb movement disorder; Z91.041 Radiographic dye allergy status; Z88.1 Allergy status to other antibiotic agents
CPT/HCPCS: 99211

== ENCOUNTER → 2023-04-23 | Outpatient (CLI) | payer OTHER ==
[2023-04-23 15:53] LABS: ALT 19 U/L (10-49); AST 17 U/L (14-35); Albumin 4.3 d/dL (3.8-4.9); Albumin/Globulin Ratio 1.43 Ratio (1.60-3.17); Alkaline Phosphatase 77 U/L (41-126); BUN/Creat Ratio 16.11 Ratio (12.00-20.00); Blood Urea Nitrogen 14.5 mg/dL (9.0-27.0); Calcium 9.2 mg/dL (8.7-10.3); Carbon Dioxide 26.6 mmol/L (21.6-31.8); Chloride 104 mmol/L (96-109); Chol/HDL Ratio 3.85 Ratio; Glucose 106 mg/dL (70-110); LDL Cholesterol,Calculated 113.7 mg/dL (0.0-131.0); Potassium 4.1 mmol/L (3.5-5.5); Sodium 141 mmol/L (135-145); Total Bilirubin 0.3 mg/dL (0.3-1.2); Total Protein 7.3 d/dL (6.2-8.2); VLDL Calculation 15.12 mg/dL (5.00-40.00)
== END | disposition home or self-care (01) ==
LOC: LABWHC1 07:26
PROVIDERS: ATTEND Physician Assistant Medical
DX: Z13.220 Encounter for screening for lipoid disorders (principal); Z13.1 Encounter for screening for diabetes mellitus; Z11.59 Encounter for screening for other viral diseases; K58.9 Irritable bowel syndrome, unspecified; E66.01 Morbid (severe) obesity due to excess calories; R19.7 Diarrhea, unspecified; R10.13 Epigastric pain; Z68.37 Body mass index [BMI] 37.0-37.9, adult
CPT/HCPCS: 36415; 80053; 80061; 83036; 86803

== ENCOUNTER → 2023-04-23 | Outpatient (CLI) | payer OTHER ==
--- NOTE | 2023-04-23 09:22 | US ---
EXAMINATION TYPE: US abdomen limited DATE OF EXAM: 04/23/2023 COMPARISON: NONE CLINICAL INDICATION: Male, 43 years old with history of K58.9 IBS, R10.13 EPI PAIN, R19.7 DIARRHEA; c hronic abd pain for 7 years, large habitus TECHNIQUE: Multiple sonographic images of the right upper quadrant are obtained. FINDINGS: EXAM MEASUREMENTS: Liver Length: 19.6 cm Gallbladder Wall: 0.2 cm CBD: not seen Right Kidney: 11.4 x 5.3 x 6.3cm HEALTHCARE MANAGEMENT NOTES:bowel gas and habitus limits exam Pancreas: not seen due to bowel gas Liver: intercostal imaging due to gas, difficult to penetrate, enlarged Gallbladder: wnl Evidence for sonographic Gomez's sign: no CBD: not seen due to gas and habitus Right Kidney: wnl IMPRESSION: 1. Very limited by bowel gas, patient body habitus, and intercostal views. 2. There is hepatomegaly at 19.6 cm with possible moderate to severe hepatic steatosis. Correlate wit h LFTs, lipid profile, and patient risk factors. 3. No gallstones. 4. Unable to visualize the pancreas or bowel duct by ultrasound.
== END | disposition home or self-care (01) ==
LOC: RADUSWWP 06:50
DX: R16.0 Hepatomegaly, not elsewhere classified (principal); K58.9 Irritable bowel syndrome, unspecified; R10.13 Epigastric pain; R19.7 Diarrhea, unspecified
CPT/HCPCS: 76705

== ENCOUNTER → 2023-10-16 | Outpatient (CLI) | payer OTHER ==
--- NOTE | 2023-10-16 22:50 | MR ---
EXAMINATION TYPE: MR knee LT wo con DATE OF EXAM: 10/16/2023 COMPARISON: Outside left knee x-ray October 06, 2023. Prior left knee MRI December 26, 2019 HISTORY: Left knee pain and swelling, Hx scope 2019 TECHNIQUE: Multiplanar, multisequence images of the knee is performed without IV contrast. FINDINGS: MEDIAL MENISCUS: Anterior and posterior horns are intact without tear. LATERAL MENISCUS: Anterior and posterior horns are intact without tear. CRUCIATE LIGAMENTS: The anterior and posterior cruciate ligaments are intact and unremarkable. Tiny 3 mm cyst anterior to the distal ACL insertion sagittal image 19 is redemonstrated COLLATERAL LIGAMENTS: The medial collateral ligament and lateral collateral ligament complex are inta ct and unremarkable. EXTENSOR MECHANISM: Visualized quadriceps and patellar tendons are intact. EFFUSION: No significant suprapatellar joint effusion. POPLITEAL CYST: No popliteal/hoang cyst. TRICOMPARTMENT SPACES: Tricompartmental joint spaces are preserved. No significant spurring is seen. CARTILAGE: Tricompartmental articular cartilage is preserved. BONE MARROW SIGNAL: No focal abnormal marrow signal is appreciated. OTHER: No additional significant abnormality is appreciated. IMPRESSION: No meniscal or ligamentous tear is seen. No significant change from prior MRI.
== END | disposition home or self-care (01) ==
LOC: RADMRIMAIN 19:10
PROVIDERS: ATTEND Orthopaedic Surgery
DX: M25.562 Pain in left knee (principal)

== ENCOUNTER → 2023-11-18 | Outpatient (CLI) | payer BC ==
--- NOTE | 2023-11-18 14:33 | NM ---
EXAMINATION TYPE: NM bone scan whole body, NM bone SPECT DATE OF EXAM: 11/18/2023 COMPARISON: MRI lumbar spine August 27, 2023 CLINICAL INDICATION: Male, 43 years old with history of M54.50 LOW BACK PAIN, UNSPECIFIED; Delayed whole-body scanning was performed following the injection of 24.1 mCi Tc 99m MDP. Images acq uired 5.25 hours post injection. FINDINGS: SPECT imaging of the lumbar spine shows no suspicious focal increased radiotracer uptake to suggest s pondylosis or asymmetric focal advanced degenerative change. IMPRESSION: As above.
== END | disposition home or self-care (01) ==
LOC: RADNMMAIN 07:25
PROVIDERS: ATTEND Orthopaedic Surgery Orthopaedic Surgery of the Spine
DX: G57.01 Lesion of sciatic nerve, right lower limb (principal)
CPT/HCPCS: 78306; 78803; A9503

== ENCOUNTER → 2023-11-24 | Outpatient (CLI) | payer BC ==
[2023-11-24 15:22] LABS: Basophils # (A) 0.06 X 10*3/uL (0.00-0.10); Basophils % (A) 0.6 %; HCT 45.3 % (39.6-50.0); HGB 15.2 g/dL (13.0-17.0); Lymphocytes # (A) 2.58 X 10*3/uL (0.90-5.00); Lymphocytes % (A) 26.1 %; MCH 29.2 pg (27.0-32.0); MCHC 33.6 g/dL (32.0-37.0); MCV 86.9 FL (80.0-97.0); Mean Platelet Volume 9.5 FL (9.5-12.2); Monocytes # (A) 0.77 X 10*3/uL (0.20-1.00); Monocytes % (A) 7.8 %; NRBC Per 100 WBC 0 X 10*3/uL (0.00-0.01); Neutrophils % (A) 62.8 %; Platelet Count 307 X 10*3/uL (140-440); RBC 5.21 X 10*6/uL (4.40-5.60); RDW 13.2 % (11.5-14.5); WBC 9.88 X 10*3/uL (4.50-10.00)
[2023-11-24 15:26] LABS: Anion Gap 12.5 mmol/L (4.00-12.00); Carbon Dioxide 24.5 mmol/L (21.6-31.8); Potassium 3.7 mmol/L (3.5-5.5)
== END | disposition home or self-care (01) ==
LOC: LABPAT 09:23
PROVIDERS: ATTEND Orthopaedic Surgery
DX: Z01.812 Encounter for preprocedural laboratory examination (principal); M23.92 Unspecified internal derangement of left knee
CPT/HCPCS: 80051; 85025

== ENCOUNTER 2023-12-16 09:38 | Day surgery (SDC) | payer BC ==
--- NOTE | 2023-12-15 21:37 | HP ---
HISTORY AND PHYSICAL DATE OF SURGERY: 12/16/2023. HISTORY OF PRESENT ILLNESS: Balbir Snyder is a 43-year-old gentleman who was seen with progressive left knee pain. We discussed options regarding treatment. He elected to proceed with left knee arthroscopy. Consent was obtained. PAST MEDICAL HISTORY: Asthma, hypertension, gastroesophageal reflux disease. PAST SURGICAL HISTORY: Foot surgery. DAILY MEDICATIONS: 1. Albuterol inhaler. 2. Hydrochlorothiazide. 3. Lisinopril. 4. Omeprazole. ALLERGIES: Toradol, Naprosyn, Advil, Celebrex, gabapentin, Motrin, prednisone. SOCIAL HISTORY: Denies tobacco use. PHYSICAL EVALUATION OF THE LEFT KNEE: His range of motion is +1/2 to 125 degrees. Mild effusion. Tenderness along the medial joint line. Positive medial Chris's. Ligaments stable. Hip rotation without pain. Distal neurovascular exam is intact. IMAGING STUDIES: Left knee radiographs revealed mild osteoarthritis. MRI of left knee revealed a cyst along the distal anterior aspect of the ACL. IMPRESSION: 1. Intermittent left knee with anterior cruciate ligament cyst and possible meniscal tear. 2. Hypertension. 3. Gastroesophageal reflux disease. PLAN: Left knee arthroscopy with debridement of cyst and possible partial meniscectomy. MMODL / IJN: [id number] /
[~2023-12-16 09:38] MED LIST changes: +DEXAMETHASONE SOD PHOSPHATE 4 MG/ML 1 ML VIAL IV ONE; -LIDOCAINE 1% 20 ML VIAL (10MG/ML) FOR IV START INTRADERMA PRN; +ONDANSETRON 4 MG/2 ML VIAL IVP ONE; +ceFAZolin 3 GM in SODIUM CHLORIDE 0.9% 100 ML IVPB PRN
[2023-12-16 10:58] VITALS: RESP 16
[2023-12-16] MEDS ORDERED: fentaNYL (PF) 50 MCG/ML 2 ML AMP ONE (11:39)
[2023-12-16] MEDS ORDERED: LIDOCAINE 1% INJ 10MG/ML (20 ML MDV) ONE (11:39)
[2023-12-16] MEDS ORDERED: PROPOFOL 10 MG/ML 20 ML VIAL IV ONE (11:39)
[2023-12-16] MEDS ORDERED: SUCCINYLCHOLINE CHLORIDE 200 MG/10 ML VIAL IV ONE (11:39)
[2023-12-16] MEDS ORDERED: MIDAZOLAM 2 MG/2 ML VIAL ONE (11:39)
[2023-12-16] MEDS ORDERED: HYDROmorphone (PF) 1 MG/ML ONE (11:39)
[2023-12-16] MEDS ORDERED: BUPIVACAINE (PF) 0.25% 30 ML VIAL SQ ONE ×2 (12:02→12:09)
--- NOTE | 2023-12-16 12:23 | P.OP ---
Date of Procedure: 12/16/23 Preoperative Diagnosis: Internal derangement left knee Postoperative Diagnosis: 1. Tear medial meniscus left knee 2. Reactive synovitis medial, lateral and suprapatellar compartment left knee 3. Partial ACL tear left knee Procedure(s) Performed: 1. Arthroscopic partial medial meniscectomy left knee 2. Arthroscopic partial synovectomy medial, lateral and suprapatellar compartments left knee 3. Arthroscopic debridement partial ACL tear left knee Anesthesia: DANAA, local Surgeon: Torey Elias Estimated Blood Loss (ml): 5 Pathology: none sent Condition: stable Disposition: PACU Indications for Procedure: 43-year-old patient seen with progressive left knee pain. After having treatment options discussed, he elected to proceed with arthroscopy. Operative Findings: See description of procedure Description of Procedure: Patient was taken to the operative suite. Patient underwent a general anesthetic by the department of anesthesia. Patient was given preoperative antibiotics. The left lower extremity was placed in a well-padded arthroscopic leg nicole. The left leg was prepped and draped in the normal sterile orthopedic fashion. A lateral parapatellar and suprapatellar incision was made. Trochars were inserted. Arthroscopy was initiated. Suprapatellar pouch revealed diffuse thick reactive synovitis. The patellofemoral joint appeared to articulate congruently. There was no chondromalacia present. The scope was guided into the medial gutter. No loose bodies or plica were identified the scope was then guided into the medial compartment. A medial parapatellar incision was made. Trocar inserted followed by probe. There was a radial tear posterior horn medial meniscus. There was no chondromalacia. There was thick reactive synovitis anteriorly. I performed a partial medial meniscectomy. I performed a partial synovectomy. The residual meniscus was stable. There was good decompression of the synovitis. Scope and probe were then guided into the intercondylar notch. There was some mild partial tearing of the anterior cruciate ligament probably less than 10%. There was some thick synovial tissue in the notch area. With extension I did impinge in the notch. I used a motorized shaver debride out that small partial ACL tear as well as debriding out some of that thick synovial tissue in the notch. I now took the knee into full extension and noted good clearance with no impingement. The residual ACL was stable. I again noted less than 10% tearing with the residual ACL being very stable. The PCL was stable. The scope and probe were then guided into lateral compartment. The lateral meniscus was probed and was found to be stable. There was no chondromalacia. There was thick reactive cellulitis anteriorly. I used a motorized shaver and performed a partial synovectomy. The shaver was removed. There was good decompression of the synovitis. The scope was in guided back into the suprapatellar compartment. I introduced a motorized shaver into the suprapatellar compartment. I performed a partial synovectomy. The shaver was removed. There was good decompression of the synovitis. Instruments were now removed from the joint. The joint was infiltrated with .25% Marcaine. Steri-Strips were applied to the portal sites. Sterile dressings were applied. The patient was placed into a ARNOLD hose. No tourniquet was utilized. The patient was awakened, transferred to a bed and taken to recovery stable satisfactory condition.
[2023-12-16] MEDS: HYDROmorphone 0.5 MG/0.5 ML SYRINGE IVP PRN ×2 (12:31→12:51)
[2023-12-16 12:52] VITALS: TEMP 96.9
[2023-12-16] MEDS ORDERED: traMADol 50 MG TAB ONE (13:24)
[2023-12-16] MEDS ORDERED: traMADol 50 MG TAB PO ONE (13:26)
[2023-12-16 14:20] VITALS: BP 127/71; PULSE 70
== END 2023-12-16 14:03 | disposition home or self-care (01) ==
LOC: OR 09:38
PROVIDERS: ATTEND Orthopaedic Surgery
DX: S83.242A Other tear of medial meniscus, current injury, left knee, initial encounter (principal); S83.512A Sprain of anterior cruciate ligament of left knee, initial encounter; M65.162 Other infective (teno)synovitis, left knee; K21.9 Gastro-esophageal reflux disease without esophagitis; J45.909 Unspecified asthma, uncomplicated; I10 Essential (primary) hypertension; Z88.6 Allergy status to analgesic agent; Z88.8 Allergy status to other drugs, medicaments and biological substances; Z79.51 Long term (current) use of inhaled steroids; Z79.899 Other long term (current) drug therapy; X58.XXXA Exposure to other specified factors, initial encounter
CPT/HCPCS: 29881; J2250; J0330; J1100; J0690; J2405; J2001; J3010; J1170 ×2; J2704; J0665